=== PATIENT | male | born 1955 | race Caucasian/White ===

== ENCOUNTER → 2019-03-07 | Outpatient (CLI) | payer BC, SELFPAY ==
[2019-03-07 12:26] LABS: Absolute Lymphocyte Count 1.38 X10^3/ul (0.83-4.51); Absolute Neutrophil Count 2.9 X10^3/uL (2.0-7.7); Basophil# 0.05 X10^3/uL; Eosinophil# 0.21 X10^3/uL; Eosinophils% 4.2 % (0-5); Hematocrit 44.1 % (40-54); Hemoglobin 14.9 g/dl (13.0-16.5); Lymphocyte # 1.38 X10^3/ul (4.0); Lymphocyte % 27.6 % (19-41); Mean Corp Hgb Conc 33.8 g/gl (32-36); Mean Corpuscular Hgb 32.3 pg (27.0-32.0); Mean Corpuscular Volume 95.7 fL (80-94); Mean Platelet Vol. 10.2 fl (6.2-12.0); Monocyte# 0.46 X10^3/uL; Monocyte% 9.2 % (0-10); Platelet Count 182 K/mm3 (150-450); RBC Distribution Width CV 13.5 % (11.6-14.6); RBC Distribution Width SD 46.5 fl (35.1-43.9); Red Blood Count 4.61 M/mm3 (4.6-6.2)
[2019-03-07 12:30] LABS: POSITIVE COUNT NO; POSITIVE DIFFERENTIAL NO; POSITIVE MORPHOLOGY NO
[2019-03-07 12:57] LABS: Anion Gap 4 (5-15); BUN 16 mg/dL (7-18); BUN/Creat Ratio 17.7 RATIO (10-20); Calcium,Total 8.5 mg/dL (8.5-10.1); Chloride 110 mmol/L (98-107); Cholesterol 175 mg/dL (200); Creatinine, Serum 0.91 mg/dL (0.70-1.30); EST Glomerular Filtration Rate 90 mL/min (>60); Est Glom Filt Rate - Afr Amer 109 mL/min (>60); Glucose 96 mg/dL (74-106); High Density Lipoprotein 40 mg/dL; PSA,Total - Annual Screen 0.68 ng/mL (0.00-4.00); Potassium 3.9 mmol/L (3.5-5.1); Sodium Level 142 mmol/L (136-145); Triglycerides 91 mg/dL; Very Low Density Lipoprotein 18 mg/dL (5-40)
[2019-03-08 17:17] LABS: Hep C Antibodies <0.1 s/co ratio (0.0-0.9)
== END | disposition home or self-care (01) ==
LOC: MFPLAB 09:53
PROVIDERS: Visit Provider Family Medicine
DX: Z00.00 Encounter for general adult medical examination without abnormal findings (principal); Z12.5 Encounter for screening for malignant neoplasm of prostate; Z11.59 Encounter for screening for other viral diseases
CPT/HCPCS: 36415; 80048; 80061; 84153; 85025; 86803; G0103

== ENCOUNTER → 2019-09-09 11:37 | Outpatient (CLI) | payer BC, SELFPAY ==
--- NOTE | 2019-09-09 11:42 | RAD_ITS ---
STUDY: X-RAY - RIGHT KNEE REASON FOR EXAM: Male, 64 years old. Arthralgia. TECHNIQUE: 4 view(s) of the knee. COMPARISON: None. FINDINGS: Normal visualized distal femur. Normal visualized proximal tibia and fibula. There is mild arthrosis of the proximal tibiofibular articulation. There is no demonstrated fracture. There is mild degenerative arthrosis of the medial femorotibial compartment. Normal lateral femorotibial compartment. Normal patellofemoral articulation. There is no demonstrated joint effusion. The soft tissue structures are unremarkable. RAD/Knee 4 or More Views IMPRESSION: Mild degenerative disease, otherwise normal x-ray examination of the knee. Electronically Signed: Grace Riggins MD at 0:49 EDT , Service support ,
--- NOTE | 2019-09-09 11:42 | RAD_ITS ---
STUDY: X-RAY - LEFT KNEE REASON FOR EXAM: Male, 64 years old. Arthralgia. TECHNIQUE: 4 view(s) of the knee. COMPARISON: None. FINDINGS: Normal visualized distal femur. Normal visualized proximal tibia and fibula. There is arthrosis of the proximal tibiofibular articulation. There is no demonstrated fracture. There is mild degenerative arthrosis of the medial femorotibial compartment. Normal lateral femorotibial compartment. Normal patellofemoral articulation. Possible trace amount of joint fluid. The soft tissue structures are unremarkable. RAD/Knee 4 or More Views IMPRESSION: Minor degenerative disease with possible trace amount of joint fluid. Otherwise unremarkable x-ray of the left knee. Electronically Signed: Grace Riggins MD at 0:49 EDT , Service support ,
--- NOTE | 2019-09-09 11:42 | RAD_ITS ---
STUDY: X-RAY - LEFT SHOULDER REASON FOR EXAM: Male, 64 years old. TECHNIQUE: 4 view(s) of the shoulder. COMPARISON: None. 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 There is degenerative arthrosis of the acromioclavicular joint without inferior osseous spur formation. Normal acromion. Normal humeral head and visualized proximal humerus. The soft tissue structures are unremarkable. There is no demonstrated fracture. Normal visualized pulmonary apex. RAD/Shoulder min 2 Views IMPRESSION: Mild degenerative disease, otherwise normal x-ray examination of the shoulder. Electronically Signed: Grace Riggins MD at 0:49 EDT , Service support ,
--- NOTE | 2019-09-09 11:43 | RAD_ITS ---
STUDY: X-RAY - RIGHT SHOULDER REASON FOR EXAM: Male, 64 years old. Arthralgia. TECHNIQUE: 4 view(s) of the shoulder. COMPARISON: None. 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 There is degenerative arthrosis of the acromioclavicular joint without inferior osseous spur formation. Normal acromion. Normal humeral head and visualized proximal humerus. The soft tissue structures are unremarkable. There is no demonstrated fracture. Normal visualized pulmonary apex. RAD/Shoulder min 2 Views IMPRESSION: Mild degenerative disease, otherwise normal x-ray examination of the shoulder. Electronically Signed: Grace Riggins MD at 0:50 EDT , Service support ,
== END ==
PROVIDERS: Family Provider Family Medicine; PCP Family Medicine; Referring Provider Family Medicine; Visit Provider Family Medicine
DX: M25.50 Pain in unspecified joint (principal)
CPT/HCPCS: 73030; 73564

== ENCOUNTER → 2022-09-23 | Outpatient (CLI) | payer MEDICARE, OTHER, SELFPAY ==
[2022-09-23 15:14] LABS: Absolute Lymphocyte Count 1.48 X10^3/uL (0.83-4.51); Absolute Neutrophil Count 3.2 X10^3/uL (2.0-7.7); Basophil# 0.05 X10^3/uL; Basophil% 0.9 % (0-1); Eosinophil# 0.15 X10^3/uL; Eosinophils% 2.8 % (0-5); Hematocrit 47.6 % (40-54); Hemoglobin 16.1 g/dL (13.0-16.5); Lymphocyte # 1.48 X10^3/ul (0.83-4.51); Lymphocyte % 27.4 % (19-41); Mean Corp Hgb Conc 33.8 g/dL (32-36); Mean Corpuscular Hgb 32.2 pg (27.0-32.0); Mean Corpuscular Volume 95.2 fL (80-94); Mean Platelet Vol. 10.5 fl (6.2-12.0); Monocyte# 0.52 X10^3/uL; Monocyte% 9.6 % (0-10); NRBC Flagged by Analyzer 0 % (0-5); Neutrophil # 3.19 X10^3/uL (2.7-7.7); Neutrophil % 59.1 % (47-70); Platelet Count 196 K/mm3 (150-450); RBC Distribution Width SD 45.8 fl (35.1-43.9); White Blood Count 5.4 K/mm3 (4.4-11.0)
[2022-09-23 15:25] LABS: AST(SGOT) 14 U/L (15-37); Alanine Aminotransfer ALT/SGPT 24 U/L (16-61); Alkaline Phosphatase 74 U/L (45-117); Anion Gap 8 (5-15); BUN 12 mg/dL (7-18); BUN/Creat Ratio 14.9 RATIO (10-20); Calcium,Total 9.3 mg/dL (8.5-10.1); Chloride 103 mmol/L (98-107); Cholesterol 198 mg/dL (200); Creatinine, Serum 0.81 mg/dL (0.70-1.30); EST Glomerular Filtration Rate 102 mL/min (>60); Est Glom Filt Rate - Afr Amer 124 mL/min (>60); Globulin 3.9 g/dL (2.2-4.2); Glucose 91 mg/dL (74-106); High Density Lipoprotein 46 mg/dL; PSA,Total - Annual Screen 0.72 ng/mL (0.00-4.00); Potassium 4.3 mmol/L (3.5-5.1); Protein, Total 7.9 g/dL (6.4-8.2); Sodium Level 138 mmol/L (136-145); Thyroid Stim Hormone (TSH) 1.57 uIU/mL (0.358-3.74); Triglycerides 94 mg/dL; Very Low Density Lipoprotein 19 mg/dL (5-40)
== END | disposition home or self-care (01) ==
LOC: MFPLAB 11:26
PROVIDERS: PCP Family Medicine; Referring Provider Family Medicine; Visit Provider Family Medicine
DX: E78.00 Pure hypercholesterolemia, unspecified (principal); Z12.5 Encounter for screening for malignant neoplasm of prostate
CPT/HCPCS: 36415; 80053; 80061; 84153; 84443; 85025; G0103

== ENCOUNTER → 2022-11-14 | Outpatient (CLI) | payer MEDICARE, OTHER, SELFPAY ==
--- NOTE | 2022-11-14 10:31 | RAD_ITS ---
INDICATION: cough EXAMINATION/TECHNIQUE: X-RAY - XR Chest 2 Views COMPARISON: None. FINDINGS: Support devices: None. Streaky left basilar atelectasis. No focal consolidations, effusions, or sizable pneumothorax. Cardiomediastinal silhouette is within normal limits. No acute findings in the bones or soft tissues. RAD/Chest PA and Lateral IMPRESSION: No radiographic evidence of acute cardiopulmonary disease. Electronically Signed: Dave Haji, at 10:48 EST ,
== END | disposition home or self-care (01) ==
LOC: MTRAD 10:31
PROVIDERS: PCP Family Medicine; Referring Provider Family Medicine; Visit Provider Family Medicine
DX: R05.8 Other specified cough (principal)
CPT/HCPCS: 71046

== ENCOUNTER → 2023-03-27 | Outpatient (CLI) | payer MEDICARE, OTHER, SELFPAY ==
--- NOTE | 2023-03-27 14:42 | RAD_ITS ---
EXAM: XR LEFT HAND COMPLETE, 3 OR MORE VIEWS CLINICAL INDICATION: L hand injury TECHNIQUE: Frontal, lateral and oblique views of the left hand. COMPARISON: No relevant prior studies available. FINDINGS: BONES/JOINTS: Degenerative changes at the base of the thumb and at the lateral midcarpus. No fracture demonstrated. Mild periarticular osteophytes at second through fourth DIP joints on the lateral view. Mild degenerative change of the fifth PIP joint. No sclerotic or destructive changes observed. SOFT TISSUES: Mild dorsal soft tissue swelling. No radiopaque foreign body. RAD/Hand Min 3 Views IMPRESSION: Soft tissue swelling. Degenerative changes. No fracture or dislocation identified. Electronically Signed: Eli Streeter MD at 8:43 EDT ,
== END | disposition home or self-care (01) ==
LOC: MTRAD 14:42
PROVIDERS: PCP Family Medicine; Referring Provider Family Medicine; Visit Provider Family Medicine
DX: S69.92XA Unspecified injury of left wrist, hand and finger(s), initial encounter (principal)
CPT/HCPCS: 73130

== ENCOUNTER 2023-09-23 12:31 | Outpatient (CLI) | payer MEDICARE, OTHER, SELFPAY ==
[2023-09-23 15:33] LABS: ALB/GLOB Ratio 0.9 RATIO (0.9-2.4); AST(SGOT) 16 U/L (15-37); Alanine Aminotransfer ALT/SGPT 30 U/L (16-61); Albumin, Serum 3.6 g/dL (3.2-5.0); Alkaline Phosphatase 78 U/L (45-117); Anion Gap 6 (5-15); BUN 12 mg/dL (7-18); BUN/Creat Ratio 14.5 RATIO (10-20); Chloride 106 mmol/L (98-107); Cholesterol 185 mg/dL (200); Creatinine, Serum 0.83 mg/dL (0.70-1.30); EST Glomerular Filtration Rate 99 mL/min (>60); Est Glom Filt Rate - Afr Amer 120 mL/min (>60); Globulin 4.1 g/dL (2.2-4.2); Glucose 98 mg/dL (74-106); High Density Lipoprotein 42 mg/dL; PSA,Total - Annual Screen 0.86 ng/mL (0.00-4.00); Potassium 4.2 mmol/L (3.5-5.1); Protein, Total 7.7 g/dL (6.4-8.2); Sodium Level 140 mmol/L (136-145); Triglycerides 121 mg/dL; Very Low Density Lipoprotein 24 mg/dL (5-40)
== END 2023-09-23 23:59 | disposition home or self-care (01) ==
LOC: MFPLAB 12:31 → MTLAB 12:32
PROVIDERS: PCP Family Medicine; Referring Provider Family Medicine; Visit Provider Family Medicine
DX: Z00.00 Encounter for general adult medical examination without abnormal findings (principal); Z12.5 Encounter for screening for malignant neoplasm of prostate; E78.00 Pure hypercholesterolemia, unspecified
CPT/HCPCS: 36415; 80053; 80061; 84153; G0103

== ENCOUNTER → 2024-10-12 | Outpatient (CLI) | payer MEDICARE, OTHER, SELFPAY ==
[2024-10-12 11:09] LABS: ALB/GLOB Ratio 0.9 RATIO (0.9-2.4); AST(SGOT) 15 U/L (15-37); Alanine Aminotransfer ALT/SGPT 21 U/L (16-61); Albumin, Serum 3.5 g/dL (3.2-5.0); Alkaline Phosphatase 78 U/L (45-117); Anion Gap 4 (5-15); BUN 10 mg/dL (7-18); Chloride 107 mmol/L (98-107); Creatinine, Serum 0.83 mg/dL (0.70-1.30); EST Glomerular Filtration Rate 98 mL/min (>60); Est Glom Filt Rate - Afr Amer 118 mL/min (>60); Globulin 4.1 g/dL (2.2-4.2); Glucose 105 mg/dL (74-106); Potassium 4.1 mmol/L (3.5-5.1); Protein, Total 7.6 g/dL (6.4-8.2); Sodium Level 140 mmol/L (136-145)
== END | disposition home or self-care (01) ==
PROVIDERS: PCP Family Medicine; Referring Provider Family Medicine; Visit Provider Family Medicine
DX: Z12.5 Encounter for screening for malignant neoplasm of prostate (principal); E21.3 Hyperparathyroidism, unspecified
CPT/HCPCS: 36415; 80053; 82306; 84153; G0103

== ENCOUNTER → 2025-05-01 | Outpatient (CLI) | payer MEDICARE, OTHER, SELFPAY ==
[2025-05-03 07:07] LABS: Calprotectin, Stool 21 ug/g (0-120); Fats, Neutral Normal (.); Fats, Total Increased (.)
[2025-05-03 08:09] LABS: Pancreatic Elastase, Fecal > 800 (>200)
== END | disposition home or self-care (01) ==
LOC: LABSPEC 08:43
PROVIDERS: PCP Family Medicine; Referring Provider Internal Medicine Gastroenterology; Visit Provider Internal Medicine Gastroenterology
DX: K58.9 Irritable bowel syndrome, unspecified (principal); K92.2 Gastrointestinal hemorrhage, unspecified
CPT/HCPCS: 36415; 82274; 82653; 82705; 83630; 83993; 87177; 87209; 87329

== ENCOUNTER → 2025-05-09 | Outpatient (CLI) | payer MEDICARE, OTHER, SELFPAY ==
--- NOTE | 2025-05-09 06:10 | CT_ITS ---
PROCEDURE: ABDOMEN/PELVIS WITH CONTRAST 05/09/2025 REASON FOR EXAM: GI BLEED TECHNIQUE: ABDOMEN/PELVIS WITH oral and IV CONTRAST Coronal and Sagittal reconstruction series were provided. CONTRAST: Isovue 370 VOLUME: 80 mL One or more dose reduction techniques were used (e.g., Automated exposure control, adjustment of the mA and/or kV according to patient size, use of iterative reconstruction technique. RADIATION DOSE SUMMARY: CTDlvol: 18.3 mGy DLP: 1046 mGycm COMPARISON: None FINDINGS: Lung bases: Multivessel coronary calcifications. Triangular nodule in the right lower lobe measuring 3 mm (series 2, image 6). Bibasilar atelectasis. Liver: Subcentimeter hypodensities are too small to characterize. Gallbladder: Unremarkable Spleen: Normal size. Pancreas: Normal size without evidence of mass surrounding inflammation or ductal dilation. Adrenals: Unremarkable Kidneys: No hydronephrosis or stone. Bilateral simple cysts. Additional subcentimeter hypodensities are too small to characterize. Bladder: Unremarkable Reproductive Organs: Mild prostatomegaly Bowel: No obstruction or inflammation. Presence of oral contrast limits evaluation for active gastrointestinal bleeding. Appendix: The appendix is not identified. There is no inflammatory process identified in the right lower quadrant to suggest appendicitis. Lymph nodes: No suspicious lymph node enlargement. Vasculature: Mild diffuse atherosclerotic calcifications are noted. Bones: Degenerative changes of the spine and sacroiliac joints. Soft tissues: There are round an ovoid hypodense lesions in the left rectus femoris muscle, which demonstrate peripheral hyperenhancement and measure slightly above simple fluid density and up to 4.0 cm in size. Postoperative changes from bilateral inguinal hernia repair. CT/Abdomen/Pelvis WITH Contrast IMPRESSION: 1. No definite evidence for an acute intra-abdominal abnormality. Presence of oral contrast precludes evaluation for active gastrointestinal bleeding. 2. Hypodense lesions with peripheral enhancement within the left rectus femori s muscle, partially imaged and measuring up to 4.0 cm in size. Findings could represent intramuscular abscess, hematoma, muscle i njury, or neoplasm. Correlate with history and exam. 3. Pulmonary nodule measuring 3 mm in the right lower lobe. Consider CT chest in 12 months if patient is at high risk for malignancy per Fleischner society guidelines. Reading Location: [facility]
--- OUTSIDE RECORDS SUMMARY | 2025-05-09 06:12 | XMS RPT_ITS | CCD ---
Author Organization [facility]iniSyn[facility] Care Team Providers Care Knocker Off Name Role Phone Dr. Trell Schwartz Primary Care Provider Dr. Trell Schwartz Referring Provider NELSON Beaulieu Attending Provider NELSON Quintero Attending Provider [phone] LANA MONTERO, TRELL Primary Care Physician [phone] ERNESTINA SHAHID, YOAN Hu Attending Shaina SCHWARTZ MD, TRELL Primary Care Unavailable ERNESTINA SHAHID, YOAN Hu Attending Shaina SCHWARTZ MD, TRELL Primary Care Unavailable LANA MONTERO, TRELL Primary Care Unavailable ERNESTINA SHAHID, YOAN Hu Attending YOAN Mcpherson Attending Shaina SCHWARTZ MD, TRELL Primary Care Unavailable Dr. Trell Schwartz MD Primary Care Provider [phone] Referred, Self Attending Provider Unavailable Referred, Self Referring Provider Unavailable Dr. Jarred Corona MD Attending Provider Dr. Trell Schwartz MD Referring Provider Dr. Spenser Garrison DO Attending Provider Dr. Spenser Garrison DO Referring Provider Trell Schwartz Primary Care Unavailable Referred, Self Attending Unavailable Referred, Self Referring Unavailable Trell Schwartz Primary Care Unavailable Spenser Garrison Attending Unavailable Spenser Garrison Referring Unavailable Trell Scwhartz Referring Unavailable Spenser Garrison Attending Unavailable Trell Schwartz Primary Care Unavailable Trell Schwartz Primary Care Unavailable Jarred Corona Attending Unavailable Trell Schwartz Primary Care Unavailable FriendSpenser Attending Unavailable Spenser Garrison Referring Unavailable Trell Schwartz Primary Care Unavailable Trell Schwartz Attending Unavailable Trell Schwartz Referring Unavailable Medications Current Medications Medication Drug Class(es) Dates Sig (Normalized) Sig (Original) cholecalciferol 0.025 mg oral capsule (2 sources) Vitamin D Start: 04-28-2025 take 1 capsule by mouth once daily Cholecalciferol (Vitamin D3) 25 mcg (1,000 unit) capsule Active 25 ug PO daily April 28, 2025 12:00am Chondroitin Sulfates / Glucosamine (1 source) Start: 10-26-2024 Chondroitin-Glucosam ine 400 mg-500 mg oral tablet 0 Refill(s) Start Date: 10/26/24 Status: Ordered Repeat number: 1 glucosamine sulfate 500 mg oral tablet (4 sources) Start: 12-29-2022 take 1 tablet by mouth once daily Glucosamine Sulfate (Glucosamine) 500 mg tablet Active 500 mg PO DAILY December 29, 2022 1:00am administer with a meal Multivitamin (Daily Multi-Vitamin) tablet (4 sources) Start: 12-29-2022 Multivitamin (Daily Multi-Vitamin) tablet Active 1 {tbl} PO DAILY December 29, 2022 1:00am Start: 12-29-2022 take 1 tablet by kassie th once daily Multivitamin (Daily Multi-Vitamin) tablet Active 1 TABLET PO DAILY December 29, 2022 12:00am Start: 12-29-2022 take 1 tablet by kassie th once daily Multivitamin (Daily Multi-Vitamin) tablet Active 1 TABLET PO DAILY December 29, 2022 1:00am Multivitamin preparation (1 source) Start: 10-26-2024 take 1 tablet by mouth once daily Multivitamin Dose = 1 tab(s), Oral, Daily, 0 Refill(s) Start Date: 10/26/24 Status: Ordered Repeat number: 1 Vitamin D3 25 mcg (1000 intl units) oral tablet (1 source) Start: 10-26-2024 take 1 tablet by mouth once daily Vitamin D3 25 mcg (1000 intl units) oral tablet mcg = tab(s), Oral, qDay, 0 Refill(s) Start Date: 10/26/24 Status: Ordered Repeat number: 1 Completed/Discontinued Medications Medication Drug Class(es) Dates Sig (Normalized) Sig (Original) amoxicillin 500 mg oral capsule (4 sources) Penicillin-class Antibacterial Start: 02-16-2023 End: 03-02-2023 take 1 capsule by mouth three times daily Amoxicillin 500 mg capsule Discontinued 500 mg PO THREE TIMES A DAY 42 14 February 16, 2023 12:00am March 01, 2023 12:00am March 02, 2023 12:04am azithromycin 250 mg oral tablet (8 sources) Macrolide Antimicrobial Start: 03-03-2023 End: 04-28-2025 take 2-5 tablets by mouth once daily Azithromycin 250 mg tablet Discontinued 0 PO .COMPLEX March 03, 2023 12:00am April 28, 2025 8:35am take 500 mg today (day 1), then 250 mg for 4 days (days 2-5) PO Start: 12-29-2022 End: 02-16-2023 take 2-5 tablets by mouth once daily Azithromycin 250 mg tablet Discontinued 0 PO .COMPLEX December 29, 2022 1:00am February 16, 2023 12:03pm take 500 mg today (day 1), then 250 mg for 4 days (days 2-5) PO methylPREDNISolone 4 mg oral tablet (4 sources) Corticosteroid Start: 03-03-2023 End: 03-09-2023 take 1 tablet by mouth once Methylprednisolone (Medrol (Endy)) 4 mg tablets,dose pack Discontinued 4 mg PO per package directions 21 March 03, 2023 12:00am March 08, 2023 12:00am March 09, 2023 12:03am Problems Active Problems Problem Classification Problem Date Documented Da te Episodic/Chronic Acute bronchitis (6 sources) Acute bronchitis; Translations: [Acute bronchitis, unspecified] 12-29-2022 Episodic Gastrointestinal hemorrhage (6 sources) Gastrointestinal hemorrhage; Translations: [Gastrointestinal hemorrhage, unspecified] Onset: 5 04-28-2025 Episodic Other gastrointestinal disorders (1 source) Irritable bowel syndrome without diarrhea; Translations: [Irritable bowel syndrome, unspecified] Onset: 5 Chronic Other upper respiratory infections (6 sources) Acute frontal sinusitis; Translations: [Acute frontal sinusitis, unspecified] 02-16-2023 Episodic Past or Other Problems Problem Classification Problem Date Documented Da te Episodic/Chronic Other screening for suspected conditions (not mental disorders or infectious disease) (2 sources) Raised prostate specific antigen; Translations: [Encounter for screening for malignant neoplasm of prostate] Onset: 11-11-2024 10-26-2024 Episodic Results Test Name Value Interpretation Reference Range Facility M7400.3302on 05-06-2025 M7400.3302 __ [facility] ORIGINAL REPORT ON FILE IN LAB CONTAINS ADDITIONAL TEST SITE INFORMATION. Giardia Lamblia EIA NEGATIVE [facility] Comment on above: Performed By: #### L 506.1000, L500.4050 #### [facility] [place], [address] Ova and Parasites 8623on OP OVA AND PARASITES EXAM, ROUTINE These results were obtained using wet preparation(s) and trichrome stained smear. This test does not include testing for Crytosporidium parvum, Cyclospora, or Microsporidia. One negative specimen does not rule out the possibility of a parasitic infection. TESTING PERFORMED AT [facility]. ORIGINAL REPORT ON FILE IN LAB CONTAINS ADDITIONAL TEST SITE INFORMATION. Ova/Parasite Exam NO OVA, CYSTS, OR PARASITES FOUND. [facility] Comment on above: Performed By: #### L 7000.0700, M600.5000, L7000.0300, L7000.0750, M7400.3302, M100.0605, M100.7900 #### [facility] [address] [place], [place], [id number] Calprotectin, Stoolon [address] 21 ug/g Normal 0-120 [facility] Comment on above: Order Comment: Test( s) 154681-Sifn, Neutral; 939085-Pozv, Total was developed and its performance characteristics determined by [employer]. It has not been cleared or approved by the Food and Drug Administration. Result Comment: Conc entration Interpretation Follow-Up < 5 - 50 ug/g Normal None >50 -120 ug/g Borderline Re-evaluate in 4-6 weeks >120 ug/g Abnormal Repeat as clinically indicated Performed at: [address] [id number] Paedodontist: Anders Tillman PhD, Phone: [phone] Performed at: [address] [id number] Paedodontist: Meche Gates MD, Phone: [phone] Performed By: #### L 7000.0700, M600.5000, L7000.0300, L7000.0750, M7400.3302, M100.0605, M100.7900 #### [facility] [address] [place], [place], [id number] Fecal Fat, Qualitativeon FATS, NEUTRAL Normal Normal . [facility] Comment on above: Order Comment: Test( s) 908415-Yogu, Neutral; 009477-Pamj, Total was developed and its performance characteristics determined by [employer]. It has not been cleared or approved by the Food and Drug Administration. Result Comment: Norm al (<60 Droplets/HPF) Performed By: #### L 7000.0700, M600.5000, L7000.0300, L7000.0750, M7400.3302, M100.0605, M100.7900 #### [facility] [address] [place], [place], [id number] FATS, TOTAL Increased Normal . [facility] Comment on above: Order Comment: Test( s) 186578-Oexd, Neutral; 408345-Ygfg, Total was developed and its performance characteristics determined by [employer]. It has not been cleared or approved by the Food and Drug Administration. Result Comment: Norm al (<100 Droplets/HPF) Performed By: #### L 7000.0700, M600.5000, L7000.0300, L7000.0750, M7400.3302, M100.0605, M100.7900 #### [facility] [address] [place], [address] L7000.0750on 05-03-2025 P ELASTASE,FECA > 800 Normal >200 [facility] Comment on above: Result Comment: Resu lt Units: ug Elast./g Severe Pancreatic Insufficiency: <100 Moderate Pancreatic Insufficiency: 100 - 200 Normal: >200 Performed at: [facility] [employer] [id number] Paedodontist: Meche Gates MD, Phone: [phone] Performed By: #### L 7000.0700, M600.5000, L7000.0300, L7000.0750, M7400.3302, M100.0605, M100.7900 #### [facility] [address] [place], [place], [id number] Calprotectin stoolOrdered By : Spenser Garrison on 05-01-2025 Calprotectin stool 21 ug/g 0-120 [facility] Comment on above: Concentration Interp retation Follow-Up< 5 - 50 ug/g Normal None>50 -120 ug/g Borderline Re-evaluate in 4-6 weeks >120 ug/g Abnormal Repeat as clinically indicatedPerformed at: [facility] [employer] [id number] Director: Anders Tillman PhD, Phone: [phone] at: [facility] [employer] [address] [place], [place] [id number] Director: Meche Gates MD, Phone: [phone] Fecal fat detectionOrdered B y: Spenser Garrison on 05-01-2025 Fat Ql (Stl) Increased . [facility] Comment on above: Normal (<100 Droplet s/HPF) No Panel InformationOrdered By: Spenser Garrison on 05-01-2025 Stool Neutral Fats Normal . [facility] Comment on above: Normal (<60 Droplets /HPF) Stool Lactoferrin/WBCon 04-16 WBCST Normal Reference Ran ge = Negative Fecal WBC Lactoferrin Negative: No Fecal WBC Lactoferrin present Normal [facility] Comment on above: Performed By: #### L 7000.0700, M600.5000, L7000.0300, L7000.0750, M7400.3302, M100.0605, M100.7900 #### [facility] [address] [place], [place], [id number] Stool Occult Blood iFOBon STOB Negative Normal [facility] Comment on above: Performed By: #### L 7000.0700, M600.5000, L7000.0300, L7000.0750, M7400.3302, M100.0605, M100.7900 #### [facility] [address] [place], [place], [id number] Stool gastrointestinal hemog lobin detection by immunologic methodOrdered By: Spenser Garrison on 05-01-2025 Lower GI hemoglobin IA Ql (Stl) [facility] Stool lactoferrin detection by immunoassayOrdered By: Spenser Garrison on 05-01-2025 Lactoferrin IA Ql (Stl) [facility] Stool pancreatic elastase me asurement (mass/mass)Ordered By: Spenser Garrison on 05-01-2025 Elastase.pancreatic (Stl) [Mass/Mass] > 800 >200 [facility] Comment on above: Result Units: ug Sisi st./g Severe Pancreatic Insufficiency: <100 Moderate Pancreatic Insufficiency: 100 - 200 Normal: >200Performed at: [facility] [address] [place], [place] [id number] Director: Meche Gates MD, Phone: [phone] Gastroenterology Visit Repor umm 04-28-2025 Gastroenterology Visit Report [facility] [address] [place] [address] OFFICE VISIT Date of Service: 04/28/25 MR#: [id number] Acct: [id number] Name: DERICK GALINDO Rep #: [id number] : 1955 Provider: Spenser Garrison DO Age/Sex: 69/M Location: [facility] Status: Signed Intake Vital Signs 02/16/23 12:00 Height 6 ft 0.25 in Intake Visit Reasons: SOFT DARK STOOL BLEEDING Allergies No Known Allergies Allergy (Unverified 03/03/23 07:54) Medications ???Medication ???Instructions ???Recorded ???Confirmed ???Type glucosamine sulfate 500 mg tablet 500 mg PO DAILY 12/29/22 04/28/25 History (Glucosamine) multivitamin (Daily Multi-Vitamin 1 tab PO DAILY 12/29/22 04/28/25 History tablet) cholecalciferol (vitamin D3) 25 25 mcg PO QDAY 04/28/25 04/28/25 H istory mcg (1,000 unit) capsule Have you fallen in the past year?: No PFSH Medical History Acute frontal sinusitis, unspecified HPI HPI Details: DERICK GALINDO, is a 69 M who presents to the office today for initial consult. *BGI established 6. pt reports he is establishing with GI due to a change in bowel habits. Pt reports that the change started on April 16, 2025. Pt reported runny stool and had noticed some blood in his stool as well. States things slowly seem to be returning to normal, but notes that he is having 1 small bm per day, whereas before he was having 2-3 larger bm per day. Reports last colonoscopy was in November of [address] García. Pt denies other GI symptoms of concern at this time. ROS Const Constitutional: No fatigue, fever(s) or weight change ENT ENT: No difficulty swallowing Gastro GI: Positive for change in bowel habits; No abdominal pain, belching, bloating, change in stool character, coffee ground emesis, constipation, cramping, diarrhea, heartburn, difficulty swallowing, feeling full early, excessive flatus, incontinent of stools, Vomiting blood/hematemesis, Blood in stool, loose stools, Black,tarry stools, nausea/dyspepsia, pain with swallowing, vomiting or other Musc Musculoskeletal: No joint pain Skin Skin: No yellowing of the eye or itchy eyes Psych Psychiatric: No anxiety and No depression Endo Endocrine: No fatigue or weight change Aller/Imm Allergy/Immunologic: No itchy eyes Deven/Lymp Hematologic/Lymphatic: No easy bleeding or easy bruising Exam Const General: cooperative, healthy appearing and no acute distress Nutritional Appearance: average body habitus Orientation: alert, awake and oriented x3 HENMT Head: normal to inspection Ears: hearing grossly normal bilaterally, external ears normal, TM's normal bilaterally and EAC's normal Nose: external nose normal, nares normal, septum normal and no nasal discharge Face and sinus: normal facial exam, face symmetric and sinus tenderness frontal Mouth: oral mucosae normal, lip normal, tongue normal and oropharynx normal Throat: posterior oropharynx normal, tonsils normal, uvula midline and postnasal drainage (Scant purulent) Eyes General: appearance normal, both eyes and all related structures Neck Neck: normal visual inspection, full ROM, no lymphadenopathy, no meningeal signs and supple Neck mass: No Thyroid: thyroid normal Lymphatic: no lymphadenopathy noted Chest Chest palpation inspection: normal inspection of the chest Resp Effort Inspection: normal respiratory effort, able to speak in complete sentences and cough Quality of cough: wet (X1 nonproductive episode in office today) Auscultation: Bilateral: Clear to Auscultation Cardio Palpation: normal PMI Rate: regular rate Rhythm: regular rhythm Heart Sounds: S1 normal, S2 normal, no gallops, no murmurs and no rubs Pulses: radial pulses present GI Inspection: normal to inspection Skin General: no rashes or lesions noted Neuro General: patient alert, patient awake and patient oriented x3 Cognition: normal cognition Speech: speech normal Extrem General: normal to inspection Psych Appearance: grossly normal Mental Status: mental status grossly normal Mood: congruent mood Affect: normal affect Speech and Movement: speech and movement normal Attitude: cooperative Thought Process: normal Thought Content: normal Judgment: judgment good Assessment and Plan Assessment and Plan (1) GI bleed: Status: Acute Plan: 69-year-old gentleman with no significant past medical history, not on nonsteroidals who presents with crampy abdominal pain followed by episodes of loose stool that changed into bloody stools. Patient had a colonoscopy approximately 2 years ago and was normal. He does have history of diverticular disease. He has not started any new medicines. Denies any NSAID usage. He has not had any abdominal surgeries. He was not (more content not included)... Normal [facility] PSAon 02-14-2025 Prostate Specific Antigen 1.32 ng/mL Normal 0.00-4.00 [facility] Comment on above: Performed By: #### P SA #### [address] [place], [place] [address] LABORATORYOrdered By: SYSTEM SYSTEM on 11-15-2024 Prostate specific Ag [Mass/Vol] 2.63 ng/mL Normal 0.00 - 4.00 ng/mL AO ADM SS PSAon 11-15-2024 Prostate Specific Antigen 2.63 ng/mL Normal 0.00-4.00 [facility] Comment on above: Performed By: #### P SA #### [address] [address] Comprehensive Metabolic Prof ilon 10-12-2024 Albumin [Mass/Vol] 3.5 g/dL Normal 3.2-5.0 [facility] Comment on above: Order Comment: Order Date: 09/13/24 Order Info: 0786-1 - CMP Order Info: 2857- - PSA Performed By: #### L 506.1000, L500.4050 #### [facility] [address] [place], [address] Albumin/Globulin [Mass ratio] 0.9 {ratio} Normal 0.9-2.4 [facility] Comment on above: Order Comment: Order Date: 09/13/24 Order Info: 0786-1 - CMP Order Info: 2857 - PSA Performed By: #### L 506.1000, L500.4050 #### [facility] [address] [place], [address] ALK P 78 U/L Normal 45-117 [facility] Comment on above: Order Comment: Order Date: 09/13/24 Order Info: 07-1 - CMP Order Info: 2856-11 - PSA Performed By: #### L 506.1000, L500.4050 #### [facility] [address] [place], [address] ALT [Catalytic activity/Vol] 21 U/L Normal 16-61 [facility] Comment on above: Order Comment: Order Date: 09/13/24 Order Info: 785- - CMP Order Info: 2856-11 - PSA Performed By: #### L 506.1000, L500.4050 #### [facility] [address] [place], [address] AST [Catalytic activity/Vol] 15 U/L Normal 15-37 [facility] Comment on above: Order Comment: Order Date: 09/13/24 Order Info: 07 - CMP Order Info: [id number] - PSA Performed By: #### L 506.1000, L500.4050 #### [facility] [address] [place], [address] Bilirubin [Mass/Vol] 0.50 mg/dL Normal 0.20-1.00 [facility] Comment on above: Order Comment: Order Date: 09/13/24 Order Info: 07- - CMP Order Info: 285- - PSA Result Comment: For patients on eltrombopag therapy, use of Dimension Head Waters TBIL is not recommended. Performed By: #### L 506.1000, L500.4050 #### [facility] [address] [place], [address] BUN/CRE 12.0 RATIO Normal 10-20 [facility] Comment on above: Order Comment: Order Date: 09/13/24 Order Info: 07-1 - CMP Order Info: [id number] - PSA Performed By: #### L 506.1000, L500.4050 #### [facility] [address] [place], [address] CA,Total 9.0 mg/dL Normal 8.5-10.1 [facility] Comment on above: Order Comment: Order Date: 09/13/24 Order Info: 07 - CMP Order Info: 2856-11 - PSA Performed By: #### L 506.1000, L500.4050 #### [facility] [address] [place], [address] Chloride [Moles/Vol] 107 mmol/L Normal 98-107 [facility] Comment on above: Order Comment: Order Date: 09/13/24 Order Info: 07 - CMP Order Info: 2856-11 - PSA Performed By: #### L 506.1000, L500.4050 #### [facility] [address] [place], [address] CO2 [Moles/Vol] 29.0 mmol/L Normal 21.0-32.0 [facility] Comment on above: Order Comment: Order Date: 09/13/24 Order Info: 0786- - CMP Order Info: 2856-11 - PSA Performed By: #### L 506.1000, L500.4050 #### [facility] [address] [place], [address] Creatinine [Mass/Vol] 0.83 mg/dL Normal 0.70-1.30 [facility] Comment on above: Order Comment: Order Date: 09/13/24 Order Info: 0786- - CMP Order Info: 2856-11 - PSA Result Comment: The validity of the calculated GFR GFRAA in patients over 70 years has not been determined. Clinical correlation is essential. Performed By: #### L 506.1000, L500.4050 #### [facility] [address] [place], [address] EST GFR - AA 118 mL/min Normal >60 [facility] Comment on above: Order Comment: Order Date: 09/13/24 Order Info: 07 - CMP Order Info: 2856-11 - PSA Result Comment: Afri can Albanian GFR Calc Performed By: #### L 506.1000, L500.4050 #### [facility] [address] [place], [address] GAP 4 Low 5-15 [facility] Comment on above: Order Comment: Order Date: 09/13/24 Order Info: 785-11 - CMP Order Info: 2856-11 - PSA Performed By: #### L 506.1000, L500.4050 #### [facility] [address] [place], [address] GFR/1.73 sq M.predicted among non-blacks MDRD (S/P/Bld) [Vol rate/Area] 98 mL/min/{1.73_m2} Normal >60 [facility] Comment on above: Order Comment: Order Date: 09/13/24 Order Info: 07 - CMP Order Info: 2856-11 - PSA Result Comment: Non- GFR Calc Performed By: #### L 506.1000, L500.4050 #### [facility] [address] [place], [address] Globulin (S) [Mass/Vol] 4.1 g/dL Normal 2.2-4.2 [facility] Comment on above: Order Comment: Order Date: 09/13/24 Order Info: 0786 - CMP Order Info: [id number] - PSA Performed By: #### L 506.1000, L500.4050 #### [facility] [address] [place], [address] Glucose [Mass/Vol] 105 mg/dL Normal 74-106 [facility] Comment on above: Order Comment: Order Date: 09/13/24 Order Info: 0786 - CMP Order Info: [id number] - PSA Result Comment: Fast ing Glucose result from 100 to 125 mg/dL suggests IMPAIRED HOMEOSTASIS per A.D.A. criteria. Performed By: #### L 506.1000, L500.4050 #### [facility] [address] [place], [address] Potassium [Moles/Vol] 4.1 mmol/L Normal 3.5-5.1 [facility] Comment on above: Order Comment: Order Date: 09/13/24 Order Info: 0786-1 - CMP Order Info: 2856-1 - PSA Performed By: #### L 506.1000, L500.4050 #### [facility] [address] [place], [address] Sodium [Moles/Vol] 140 mmol/L Normal 136-145 [facility] Comment on above: Order Comment: Order Date: 09/13/24 Order Info: 07- - CMP Order Info: 2856-11 - PSA Performed By: #### L 506.1000, L500.4050 #### [facility] [address] [place], [address] T PROT 7.6 g/dL Normal 6.4-8.2 [facility] Comment on above: Order Comment: Order Date: 09/13/24 Order Info: 0786-1 - CMP Order Info: 2856-11 - PSA Performed By: #### L 506.1000, L500.4050 #### [facility] [address] [place], [address] Urea nitrogen [Mass/Vol] 10 mg/dL Normal 7-18 [facility] Comment on above: Order Comment: Order Date: 09/13/24 Order Info: 0786-1 - CMP Order Info: 285-1 - PSA Performed By: #### L 506.1000, L500.4050 #### [facility] [address] [place], [address] PSA,Total - Annual Screenon 10-12-2024 PSA,TOT SCREEN 11.10 ng/mL High 0.00-4.00 [facility] Comment on above: Order Comment: Order Date: 09/13/24 Order Info: 0786-1 - CMP Order Info: 2857-1 - PSA Result Comment: This test was performed using the TPSA assay method for the [employer] chemistry system. Values obtained with different assay methods cannot be used interchangably. When changing PSA assays in the course of monitoring a patient, additional sequential testing should be carried out to confirm baseline values. Performed By: #### L 501.9910 #### [facility] [address] [place], [address] Vitamin D,25 Hydroxyon 10-12 Vitamin D 25-OH 30.0 ng/mL Normal [facility] Comment on above: Order Comment: Order Date: 09/13/24 Order Info: [id number] - VITD25 Result Comment: Reanna min D 25(OH) Status Range Deficiency <20 ng/mL (50nmol/L) Insufficiency 20 - 30 ng/mL (50 - 75 nmol/L) Sufficiency 30 - 100 ng/mL (75 - 250 nmol/L) Toxicity >100 ng/mL (>250 nmol/L) Performed By: #### L 506.1000, L500.4050 #### [facility] [address] [place], [address] Basophil percentageOrdered B y: Trell Schwartz on 09-23-2023 Bilirubin [Mass/Vol] 0.80 mg/dL 0.20-1.00 [facility] Comment on above: For patients on eltr ombopag therapy, use of Dimension [place] TBIL is not recommended. Chloride [Moles/Vol] 106 mmol/L 98-107 [facility] Cholesterol [Mass/Vol] 185 mg/dL <200 [facility] Comment on above: <200 mg/dL Desirable 200-240 mg/dL Borderline >240 mg/dL High Risk Glucose [Mass/Vol] 98 mg/dL 74-106 [facility] Potassium [Moles/Vol] 4.2 mmol/L 3.5-5.1 [facility] Protein [Mass/Vol] 7.7 g/dL 6.4-8.2 [facility] Sodium [Moles/Vol] 140 mmol/L 136-145 [facility] Triglyceride [Mass/Vol] 121 mg/dL <199 [facility] Comment on above: The drugs N-Acetylcy steine and Metamizole may falsely depress this assay.Serum Triglycerides Reference Interval Normal <150 mg/dL Borderline high 150 - 199 mg/dL High 200 - 499 mg/dL Very High > or = 500 mg/dL Laboratory - Chemistry and C hemistry - challengeOrdered By: Trell Schwartz on 09-23-2023 ALP [Catalytic activity/Vol] 78 U/L 45-117 [facility] ALT [Catalytic activity/Vol] 30 U/L 16-61 [facility] CO2 [Moles/Vol] 28.0 mmol/L 21.0-32.0 [facility] Globulin (S) [Mass/Vol] 4.1 g/dL 2.2-4.2 [facility] Urea nitrogen/Creatinine [Mass ratio] 14.5 mg/mg 10-20 [facility] No Panel InformationOrdered By: Trell Schwartz on 09-23-2023 Estimated GFR (MDRD) Amer 120 mL/min >60 [facility] Comment on above: GFR Calc Estimated GFR (MDRD) Non-Af Amer 99 mL/min >60 [facility] Comment on above: Non- GFR Calc Prostate Specific Antigen Screen 0.86 ng/mL 0.00-4.00 [facility] Comment on above: This test was perfor med using the TPSA assay method for the[facility] system. Values obtained with differentassay methods cannot be used interchangably.When changing PSA assays in the course of monitoring apatient, additional sequential testing should be carriedout to confirm baseline values. Serum or plasma albumin rochelle urement (mass/volume)Ordered By: Trell Schwartz on 09-23-2023 Albumin [Mass/Vol] 3.6 g/dL 3.2-5.0 [facility] Serum or plasma albumin/glob ulin mass ratioOrdered By: Trell Schwartz on 09-23-2023 Albumin/Globulin [Mass ratio] 0.9 {ratio} 0.9-2.4 [facility] Serum or plasma calcium rochelle urement (mass/volume)Ordered By: Trell Schwartz on 09-23-2023 Calcium [Mass/Vol] 9.0 mg/dL 8.5-10.1 [facility] Serum or plasma cholesterol in HDL measurement (mass/volume)Ordered By: Trell Schwartz on 09-23-2023 Cholesterol in HDL [Mass/Vol] 42 mg/dL >40 [facility] Comment on above: The drugs N-Acetylcy steine and Metamizole may falsely depress this assay. Reference Range HDL <40 mg/dL Low HDL Cholesterol HDL >or= 60 mg/dL High HDL Cholesterol Serum or plasma cholesterol in VLDL measurement (mass/volume)Ordered By: Trell Schwartz on 09-23-2023 Cholesterol in VLDL [Mass/Vol] 24 mg/dL 5-40 [facility] Serum or plasma creatinine m easurement (mass/volume)Ordered By: Trell Schwartz on 09-23-2023 Creatinine [Mass/Vol] 0.83 mg/dL 0.70-1.30 [facility] Comment on above: The validity of the calculated GFR & GFRAA in patients over 70 years has not been determined. Clinical correlation is essential. Serum or plasma low density lipoprotein (LDL) cholesterol measurement (mass/volume)Ordered By: Trell Schwartz on 09-23-2023 Cholesterol in LDL [Mass/Vol] 119 mg/dL 0-130 [facility] Serum or plasma urea nitroge n measurement (mass/volume)Ordered By: Trell Schwartz on 09-23-2023 Urea nitrogen [Mass/Vol] 12 mg/dL 7-18 [facility] Thin prep Papanicolaou smear with manual screeningOrdered By: Trell Schwartz on 09-23-2023 Thin prep Papanicolaou smear with manual screening 16 U/L 15-37 [facility] Thin prep Papanicolaou smear with manual screening 6 5-15 [facility] Absolute lymphocyte counton 09-23-2022 Lymphocytes Auto (Unsp spec) [#/Vol] 1.48 10*3/uL 0.83-4.51 [facility] Work Phone: Basophil percentageon 2021 Basophils/100 WBC (Bld) 0.9 % 0-1 [facility] Work Phone: Bilirubin [Mass/Vol] 0.90 mg/dL 0.20-1.00 [facility] Work Phone: Comment on above: For patients on eltr ombopag therapy, use of Dimension [place] TBIL is not recommended. Chloride [Moles/Vol] 103 mmol/L 98-107 [facility] Work Phone: Cholesterol [Mass/Vol] 198 mg/dL <200 [facility] Work Phone: Comment on above: <200 mg/dL Desirable 200-240 mg/dL Borderline >240 mg/dL High Risk Eosinophils/100 WBC (Bld) 2.8 % 0-5 [facility] Work Phone: [phone] Glucose [Mass/Vol] 91 mg/dL 74-106 [facility] Work Phone: [phone] Neutrophils (Bld) [#/Vol] 3.2 10*3/uL 2.0-7.7 [facility] Work Phone: [phone] Neutrophils/100 WBC (Bld) 59.1 % 47-70 [facility] Work Phone: [phone] Potassium [Moles/Vol] 4.3 mmol/L 3.5-5.1 [facility] Work Phone: [phone] Protein [Mass/Vol] 7.9 g/dL 6.4-8.2 [facility] Work Phone: [phone] Sodium [Moles/Vol] 138 mmol/L 136-145 [facility] Work Phone: [phone] Triglyceride [Mass/Vol] 94 mg/dL <199 [facility] Work Phone: [phone] Comment on above: The drugs N-Acetylcy steine and Metamizole may falsely depress this assay.Serum Triglycerides Reference Interval Normal <150 mg/dL Borderline high 150 - 199 mg/dL High 200 - 499 mg/dL Very High > or = 500 mg/dL WBC (Bld) [#/Vol] 5.4 10*3/uL 4.4-11.0 [facility] Work Phone: Blood erythrocytes count (nu mber/volume)on 09-23-2022 RBC (Bld) [#/Vol] 5.00 10*6/uL 4.6-6.2 [facility] Work Phone: Blood hemoglobin measurement (mass/volume)on 09-23-2022 Hemoglobin (Bld) [Mass/Vol] 16.1 g/dL 13.0-16.5 [facility] Work Phone: Blood lymphocytes/100 leukoc yteson 09-23-2022 Lymphocytes/100 WBC (Bld) 27.4 % 19-41 [facility] Work Phone: Blood monocytes/100 leukocyt eson 09-23-2022 Monocytes/100 WBC (Bld) 9.6 % 0-10 [facility] Work Phone: Blood platelet mean volumeon 09-23-2022 Platelet mean volume (Bld) [Entitic vol] 10.5 fL 6.2-12.0 [facility] Work Phone: Determination of erythrocyte mean corpuscular volume (MCV)on 09-23-2022 MCV (RBC) [Entitic vol] 95.2 fL 80-94 [facility] Work Phone: Hematocrit Auto (Bld) [Volum e fraction]on 09-23-2022 Hematocrit (Bld) [Volume fraction] 47.6 % 40-54 [facility] Work Phone: Laboratory - Chemistry and C hemistry - challengeon 09-23-2022 ALP [Catalytic activity/Vol] 74 U/L 45-117 [facility] Work Phone: ALT [Catalytic activity/Vol] 24 U/L 16-61 [facility] Work Phone: CO2 [Moles/Vol] 27.0 mmol/L 21.0-32.0 [facility] Work Phone: Globulin (S) [Mass/Vol] 3.9 g/dL 2.2-4.2 [facility] Work Phone: Urea nitrogen/Creatinine [Mass ratio] 14.9 mg/mg 10-20 [facility] Work Phone: Laboratory - Hematology and Cell countson 09-23-2022 Erythrocyte distribution width (RBC) [Entitic vol] 45.8 fL 35.1-43.9 [facility] Work Phone: Erythrocyte distribution width (RBC) [Ratio] 13.0 % 11.6-14.6 [facility] Work Phone: Immature granulocytes/100 WBC (Bld) 0.200 % 0.0-0.9 [facility] Work Phone: Comment on above: IG% - Immature Granu locytes (promyelocytes, myelocytes and metamyelocytes) > 1% indicates that a LEFT SHIFT is Present. MCH (RBC) [Entitic mass] 32.2 pg 27.0-32.0 [facility] Work Phone: Nucleated RBC/100 WBC (Bld) [Ratio] 0 % 0-5 [facility] Work Phone: MCHC Auto (RBC) [Mass/Vol]on 09-23-2022 MCHC (RBC) [Mass/Vol] 33.8 g/dL 32-36 [facility] Work Phone: No Panel Informationon 09-23 Estimated GFR (MDRD) Amer 124 mL/min >60 [facility] Work Phone: Comment on above: GFR Calc Estimated GFR (MDRD) Non-Af Amer 102 mL/min >60 [facility] Work Phone: Comment on above: Non- GFR Calc Prostate Specific Antigen Screen 0.72 ng/mL 0.00-4.00 [facility] Work Phone: Comment on above: This test was perfor med using the TPSA assay method for the[employer] chemistry system. Values obtained with differentassay methods cannot be used interchangably.When changing PSA assays in the course of monitoring apatient, additional sequential testing should be carriedout to confirm baseline values. Thyroid Stimulating Hormone (TSH) 1.57 uIU/mL 0.358-3.74 [facility] Work Phone: Platelets bldon 09-23-2022 Platelets (Bld) [#/Vol] 196 10*3/uL 150-450 [facility] Work Phone: Serum or plasma albumin rochelle urement (mass/volume)on 09-23-2022 Albumin [Mass/Vol] 4.0 g/dL 3.2-5.0 [facility] Work Phone: Serum or plasma albumin/glob ulin mass ratioon 09-23-2022 Albumin/Globulin [Mass ratio] 1.0 {ratio} 0.9-2.4 [facility] Work Phone: Serum or plasma calcium rochelle urement (mass/volume)on 09-23-2022 Calcium [Mass/Vol] 9.3 mg/dL 8.5-10.1 [facility] Work Phone: Serum or plasma cholesterol in HDL measurement (mass/volume)on 09-23-2022 Cholesterol in HDL [Mass/Vol] 46 mg/dL >40 [facility] Work Phone: Comment on above: The drugs N-Acetylcy steine and Metamizole may falsely depress this assay. Reference Range HDL <40 mg/dL Low HDL Cholesterol HDL >or= 60 mg/dL High HDL Cholesterol Serum or plasma cholesterol in VLDL measurement (mass/volume)on 09-23-2022 Cholesterol in VLDL [Mass/Vol] 19 mg/dL 5-40 [facility] Work Phone: Serum or plasma creatinine m easurement (mass/volume)on 09-23-2022 Creatinine [Mass/Vol] 0.81 mg/dL 0.70-1.30 [facility] Work Phone: Comment on above: The validity of the calculated GFR & GFRAA in patients over 70 years has not been determined. Clinical correlation is essential. Serum or plasma low density lipoprotein (LDL) cholesterol measurement (mass/volume)on 09-23-2022 Cholesterol in LDL [Mass/Vol] 133 mg/dL 0-130 [facility] Work Phone: Serum or plasma urea nitroge n measurement (mass/volume)on 09-23-2022 Urea nitrogen [Mass/Vol] 12 mg/dL 7-18 [facility] Work Phone: Thin prep Papanicolaou smear with manual screeningon 09-23-2022 Thin prep Papanicolaou smear with manual screening 14 U/L 15-37 [facility] Work Phone: Thin prep Papanicolaou smear with manual screening 8 5-15 [facility] Work Phone: Vital Signs Date Time Vital Sign Value Performing Clinician Faci lity 03-03-2023 07:55-0400 Body temperature 98.6 [degF] Dr. Trell Schwartz Work Phone: [facility] 03-03-2023 07:55-0400 Diastolic blood pressure 90 mm[Hg] Dr. Trell Schwartz Work Phone: [facility] 03-03-2023 07:55-0400 Heart rate 80 /min Dr. Trell Schwartz Work Phone: [facility] 03-03-2023 07:55-0400 Respiratory rate 16 /min Dr. Trell Schwartz Work Phone: [facility] 03-03-2023 07:55-0400 SaO2% (BldA) [Mass fraction] 98 % Dr. Trell Schwartz Work Phone: [facility] 03-03-2023 07:55-0400 Systolic blood pressure 136 mm[Hg] Dr. Trell Schwartz Work Phone: [facility] 02-16-2023 12:00-0400 Body height 183.[address] Trell Schwartz Work Phone: [facility] 02-16-2023 12:00-0400 Body mass index (BMI) [Ratio] 27.8 kg/m2 Dr. Trell Schwartz Work Phone: [facility] 02-16-2023 12:00-0400 Body temperature 98.2 [degF] Dr. Trell Schwartz Work Phone: [facility] 02-16-2023 12:00-0400 Body weight 93.[address] Trell Schwartz Work Phone: [facility] 02-16-2023 12:00-0400 Diastolic blood pressure 82 mm[Hg] Dr. Trell Schwartz Work Phone: [facility] 02-16-2023 12:00-0400 Heart rate 84 /min Dr. Trell Schwartz Work Phone: [facility] 02-16-2023 12:00-0400 Respiratory rate 12 /min Dr. Trell Schwartz Work Phone: [facility] 02-16-2023 12:00-0400 SaO2% (BldA) [Mass fraction] 97 % Dr. Trell Schwartz Work Phone: [facility] 02-16-2023 12:00-0400 Systolic blood pressure 136 mm[Hg] Dr. Trell Schwartz Work Phone: [facility] 12-29-2022 11:00-0500 Body mass index (BMI) [Ratio] 27.9 kg/m2 Dr. Trell Schwartz Work Phone: [facility] 12-29-2022 11:00-0500 Body temperature 98.4 [degF] Dr. Trell Schwartz Work Phone: [facility] 12-29-2022 11:00-0500 Body weight [address] Trell Schwartz Work Phone: [facility] 12-29-2022 11:00-0500 Diastolic blood pressure 72 mm[Hg] Dr. Trell Schwartz Work Phone: [facility] 12-29-2022 11:00-0500 Heart rate 77 /min Dr. Trell Schwartz Work Phone: [facility] 12-29-2022 11:00-0500 Respiratory rate 18 /min Dr. Trell Schwartz Work Phone: [facility] 12-29-2022 11:00-0500 SaO2% (BldA) [Mass fraction] 99 % Dr. Trell Schwartz Work Phone: [facility] 12-29-2022 11:00-0500 Systolic blood pressure 138 mm[Hg] Dr. Trell Schwartz Work Phone: [facility] Encounters Encounter Date Encounter Type Care Provider Facility Start: 05-09-2025 ambulatory Trell Schwartz Facilit y:[facility] Start: 05-01-2025 End: 05-01-[address] Trell Schwartz MD Work Phone: [facility] Work Phone: Start: 05-01-2025 End: 05-01-2025 Patient encounter procedure Spenser Garrison DO -Laboratory Specimen Work Phone: Start: 05-01-2025 End: 05-01-2025 ambulatory Trell Schwartz Facility:[facility] Start: 04-28-2025 End: 04-28-[address] Trell Schwartz MD Work Phone: [facility] Work Phone: Start: 04-28-2025 End: 04-28-2025 Patient encounter procedure Spenser Garrison DO -[facility] Work Phone: Start: 02-14-2025 End: 02-14-2025 ambulatory TRELL SCHWARTZ MD Facility:[facility] Start: 01-13-2025 Non-patient / Non-visit Dr. Jarred Corona MD -[facility] Start: 01-13-2025 Registered Referred Self Referred -[facility] Work Phone: Start: 01-13-2025 ambulatory Trell Schwartz Facilit y:[facility] Start: 11-23-2024 End: 11-23-2024 ambulatory YOAN DO [employer] Facility:A Start: 11-15-2024 End: 11-15-2024 ambulatory YOAN DO [employer] Facility:[facility] Start: 11-15-2024 End: 11-15-2024 Patient encounter procedure YOAN Hu ERNESTINA [employer] [facility] Start: 10-26-2024 End: 10-26-2024 ambulatory YOAN DO [employer] Facility:[facility] Start: 10-12-2024 End: 10-12-2024 ambulatory Trell Schwartz Facility:[facility] Start: 09-23-2023 End: 09-23-2023 ambulatory [facility] Work Phone: Start: 09-23-2023 End: 09-23-2023 Patient encounter procedure [facility] Work Phone: Start: 03-27-2023 End: 03-27-[address] Trell Schwartz Work Phone: [facility] Work Phone: Start: 03-27-2023 End: 03-27-[address] Trell Schwartz Work Phone: [facility] Start: 03-03-2023 End: 03-03-[address] Trell Schwartz Work Phone: [facility] Start: 02-16-2023 End: 02-16-[address] Trell Schwartz Work Phone: [facility] Start: 12-29-2022 End: 12-29-[address] Trell Schwartz Work Phone: [facility] Start: 11-14-2022 End: 11-14-2022 ambulatory [facility] Work Phone: Start: 11-14-2022 End: 11-14-2022 Patient encounter procedure [facility] [place] Start: 09-23-2022 End: 09-23-2022 Patient encounter procedure [facility] [place] [facility] Procedures Date Procedure Procedure Detail Performing Clinician Start: 05-01-[address] Trell Schwartz MD Work Phone: Start: 05-01-2025 Measurement of occul t blood in stool specimen using immunoassay Dr. Trell Schwartz MD Work Phone: Start: 03-27-2023 Plain x-ray of hand Dr. Trell Schwartz Work Phone: Start: 11-14-2022 Plain chest X-ray Start: 10-16-2008 Cataract of right eye B ENKATARZYNA ERNESTINA [employer] Start: 09-16-2007 Cataract of left eye BE NJLANA ERNESTINA [employer] Start: 11-16-2003 Herniated structure (morphologic abnormality) YOAN DO [employer] Vasectomy YOAN DO [employer] Plan of Treatment Date Care Activity Detail Author Start: 05-01-2025 Giardia Antigen (CRYSTAL) Giardia Antige n (CRYSTAL) [facility] Start: 05-01-2025 Ova and Parasites Ova and Parasites [facility] Start: 05-01-[address] [facility] [address] Abdomen and Pelvi s W contrast IV [facility] Elastase.pancreatic [Presence] in Stool [facility] Fat [Presence] in Stool [facility] Giardia lamblia anti gen assay [facility] Lactoferrin [Presenc e] in Stool by Immunoassay [facility] Measurement of occul t blood in stool specimen using immunoassay [facility] Ova OR parasites identification [facility] Protein measurement [facility] Payers Date Payer Category Payer Medicare [id number] 2024 Private Health Insurance [facility] [id number] 2024 Medicare [id number] 2024 Private Health Insurance CLI [id number] 2024 Self-pay [id number] 2012 Unknown CATHERINE [id number] 1957 Unknown [id number] 1955 Unknown [id number] 1957 Unknown [id number] 1955 Unknown [id number] Self-pay SEL[employer] PAY INSURANCE [id number] Unknown [id number] Unknown [id number] Unknown [id number] Unknown [id number] Unknown [id number] Unknown [id number] Social History Date Type Detail Facility [facility] Work Phone: Start: 1955 Sex Assigned At Male [facility] Start: 10-26-2024 Tobacco smoking status Never s moked tobacco (finding) [facility] Sexual Orientation [facility] Sex Male (finding) [facility] smoked [facility] Work Phone: Evaluation note 04-28-2025 Note Date & Type Note Facility 04-28-2025 Evaluation note Diagnosis Onset Date Resolution GI bleed acute April 28 8:19am [facility] Work Phone: Evaluation + Plan note Note Date & Type Note Facility Evaluation + Plan note Future Appointments Appointment Date:11/23/2024 03:20:00 PM Scheduled Provider:YOAN DO Location:UROLOGY Appointment Type:URO OV [facility] Evaluation note Note Date & Type Note Facility Evaluation note No assessment information availa [facility] Work Phone: Evaluation note Note Date & Type Note Facility Evaluation note Diagnosis Onset Date Acute bronchitis acute Acute frontal sinusitis, unspecified acute Acute bronchitis acute Acute frontal sinusitis, unspecified acute [facility] Work Phone: Evaluation note Note Date & Type Note Facility Evaluation note Diagnosis Onset Date Resolution GI bleed acute April 28 8:19am [facility] Work Phone: Hospital course Narrative Note Date & Type Note Facility Hospital course Narrative No data available for this section [facility] Hospital Discharge instructions Note Date & Type Note Facility Hospital Discharge instructions No data available for this section [facility] Progress note Note Date & Type Note Facility Progress note No data available for this section [facility] Reason for referral (narrative) Note Date & Type Note Facility Reason for referral (narrative) No reason for referral information available [facility] Work Phone: Chief Complaint and Reason for Visit Chief Complaint EORDER- cough Chief Complaint COUGH/CONGESTION COUGH/CONGESTION PERSISTANT COUGH/CONGESTION EORDER- L hand injury Reason for Visit Acute bronchitis Acute frontal sinusitis, unspecified Acute bronchitis Acute frontal sinusitis, unspecified Chief Complaint Admit Date SCREENING January 13, 2025 9:11am SOFT DARK STOOL BLEEDING April 28, 2025 8:19am Reason for Visit Admit Date GI bleed April 28, 2025 8:19 am Chief Complaint Admit Date SCREENING January 13, 2025 9:11am SOFT DARK STOOL BLEEDING April 28, 2025 8:19am EORDER May 01, 2025 8:42 am Summary Purpose Family History No Family History Records Found Advance Directives No Advanced Directives Records FoundNo Advanced Directives Records FoundNo Advanced Directives Records Found Additional Source Comments Goals (unrecognized section and content) Goals may be documented in a n alternate sectionGoals may be documented in an alternate sectionGoals may be documented in an alternate section No data available for this sectionGoals may be documented in an alternate sectionGoals may be documented in an alternate section Care Teams (unrecognized sec tion and content) Team Status: Active Member Role Status Dates Dr. Trell Schwartz MD Family Provider Active Dr. Zeus Lomas MD Primary Care Provider Active Team Status: Inactive Member Role Status Dates Dr. Trell Schwartz MD Primary Care Provider, Referr ing Provider Active Jeison DAMON, PA Attending Provider Active Team Status: Inactive Member Role Status Dates Dr. Trell Schwartz MD Primary Care Provider, Referr ing Provider Active Frandy Weeks PA, PA Attending Provider Active Team Status: Inactive Member Role Status Dates Dr. Trell Schwartz MD Primary Care Provider Active Dr. Zeus Lomas MD Attending Provider, Referring Pr ovider Active Team Status: Active Member Role Status Dates Dr. Trell Schwartz MD Family Provider Active Dr. Trell Schwartz MD Primary Care Provider Active Team Status: Inactive Member Role Status Dates Dr. Trell Schwartz MD Primary Care Pr ovider, Attending Provider, Referring Provider Active Team Status: Active Member Role Status Dates Dr. Trell Schwartz MD Primary Care Provider Active Team Status: Active Member Role Status Dates Dr. Trell Schwartz MD Primary Care Provider Active Start: January 13, 2025 Self Referred Attending Provider Active Start: ebruary 2024 Self Referred Referring Provider Active Start: F ebruary 2024 Team Status: Active Member Role Status Dates Dr. Trell Schwartz MD Primary Care Provider Active Start: January 13, 2025 Dr. Jarred Corona MD Attending Provider Active S tart: January 13, 2025 Team Status: Inactive Member Role Status Dates Dr. Trell Schwartz MD Primary Care Provider Active Start: April 28, 2025 End: April 28, 2025 Dr. Trell Schwartz MD Referring Provider Active Start: April 28, 2025 End: April 28, 2025 Dr. Spenser Garrison DO Attending Provider Active Start: April 28, 2025 End: April 28, 2025 Team Status: Inactive Member Role Status Dates Dr. Trell Schwartz MD Primary Care Provider Active Start: May 01, 2025 End: May 01, 2025 Dr. Spenser Garrison DO Attending Provider Active Start: May 01, 2025 End: May 01, 2025 Dr. Spenser Garrison DO Referring Provider Active Start: May 01, 2025 End: May 01, 2025 (unrecognized sect ion and content) No Status Records FoundNo Status Records FoundNo Status Records Found INFORMATION SOURCE (unrecogn ized section and content) DATE CREATED AUTHOR 12/18/2024 [facility] DATE CREATED AUTHOR AUTHOR'S ORGANIZ ATION 02/15/2025 [facility] DATE CREATED AUTHOR AUTHOR'S ORGANIZ ATION 05/08/2025 [facility] FOR RECORDS PERTAINING TO PATIENTS WHO ARE OR HAVE BEEN ENROLLED IN A CHEMICAL DEPENDENCY/SUBSTANCEABUSE PROGRAM, SOME INFORMATION MAY BE OMITTED. This clinical summary was aggregated from multiple sources. Caution should be exercised in using it in the provision of clinical care. This summary normalizes information from multiple sources, and as a consequence, information in this document may materially change the coding, format and clinical context of patient data. In addition, data may be omitted in some cases. CLINICAL DECISIONS SHOULD BE BASED ON THE PRIMARY CLINICAL RECORDS. [employer] provides no warranty or guarantee of the accuracy or completeness of information in this document.
== END | disposition home or self-care (01) ==
LOC: CT 06:09
PROVIDERS: PCP Family Medicine; Referring Provider Internal Medicine Gastroenterology; Visit Provider Internal Medicine Gastroenterology
DX: K92.2 Gastrointestinal hemorrhage, unspecified (principal)
CPT/HCPCS: 74177; Q9967

== ENCOUNTER → 2025-05-25 | Outpatient (CLI) | payer MEDICARE, OTHER, SELFPAY ==
--- OUTSIDE RECORDS SUMMARY | 2025-05-25 07:22 | XMS RPT_ITS | CCD ---
Author Organization [facility]ini[facility] Care Team Providers Care Workers' Compensation Hearings Officer Name Role Phone Dr. Trell Schwartz Primary Care Provider Dr. Trell Schwartz Referring Provider Jon DAMON PA Jeison Attending Provider [phone] Micky DAMON PA Frandy Olivier Attending Provider LANA MONTERO, TRELL Primary Care Physician YOAN KATZ Attending Shaina SCHWARTZ MD, TRELL Primary Care Unavailable YOAN KATZ Attending TRELL Johnson MD Primary Care Unavailable Dr. Trell Schwartz MD Primary Care Provider [phone] Referred, Self Attending Provider Unavailable Referred, Self Referring Provider Unavailable Dr. Jarred Corona MD Attending Provider Dr. Trell Schwartz MD Referring Provider [phone] Dr. Spenser Garrison DO Attending Provider Dr. Spenser Garrison DO Referring Provider YOAN KATZ Attending TRELL Johnson MD Primary Care TRELL Benavides MD Primary Care Unavailable YOAN KATZ Attending Shaina SCHWARTZ MD, TRELL Primary Care Unavailable YOAN KATZ Attending Dr. Trell Johnson MD Primary Care Provider [phone] Trell Schwartz Primary Care Unavailable Spenser Garrison Attending Unavailable Trell Schwartz Referring Unavailable Spenser Garrison Attending Unavailable Trell Schwartz Primary Care Unavailable Spenser Garrison Referring Unavailable Trell Schwartz Referring Unavailable Trell Schwartz Primary Care Unavailable Trell Schwartz Attending Unavailable Referred, Self Attending Unavailable Referred, Self Referring Unavailable Trell Schwartz Primary Care Unavailable Trell Schwartz Primary Care Unavailable Friend, Spenser Attending Unavailable Friend, Spenser Referring Unavailable Trell Schwartz Primary Care Unavailable Trell Schwartz Attending Unavailable Trell Schwartz Referring Unavailable Jarred Corona Attending Unavailable Trell Schwartz Primary Care Unavailable Medications Current Medications Medication Drug Class(es) Dates Sig (Normalized) Sig (Original) cholecalciferol 0.025 mg oral capsule (3 sources) Vitamin D Start: 04-28-2025 take 1 capsule by mouth once daily Cholecalciferol (Vitamin D3) 25 mcg (1,000 unit) capsule Active 25 ug PO daily April 28, 2025 12:00am Chondroitin Sulfates / Glucosamine (2 sources) Start: 10-26-2024 Chondroitin-Glucosam ine 400 mg-500 mg oral tablet 0 Refill(s) Start Date: 10/26/24 Status: Ordered Repeat number: 1 glucosamine sulfate 500 mg oral tablet (5 sources) Start: 12-29-2022 take 1 tablet by mouth once daily Glucosamine Sulfate (Glucosamine) 500 mg tablet Active 500 mg PO DAILY December 29, 2022 1:00am administer with a meal Multivitamin (Daily Multi-Vitamin) tablet (5 sources) Start: 12-29-2022 Multivitamin (Daily Multi-Vitamin) tablet [...] DAILY December 29, 2022 1:00am Multivitamin preparation (2 sources) Start: 10-26-2024 take 1 tablet by mouth once daily Multivitamin Dose = 1 tab(s), Oral, Daily, 0 Refill(s) Start Date: 10/26/24 Status: Ordered Repeat number: 1 Vitamin D3 25 mcg (1000 intl units) oral tablet (2 sources) Start: 10-26-2024 take 1 tablet by mouth once daily Vitamin D3 25 mcg (1000 intl units) oral tablet mcg = tab(s), Oral, qDay, 0 Refill(s) Start Date: 10/26/24 Status: Ordered Repeat number: 1 Completed/Discontinued Medications Medication Drug Class(es) Dates Sig (Normalized) Sig (Original) amoxicillin 500 mg oral capsule (5 sources) Penicillin-class Antibacterial Start: 02-16-2023 End: 03-02-2023 take 1 capsule by mouth three times daily Amoxicillin 500 mg capsule Discontinued 500 mg PO THREE TIMES A DAY 42 14 0 February 16, 2023 12:00am March 01, 2023 12:00am March 02, 2023 12:04am azithromycin 250 mg oral tablet (10 sources) Macrolide Antimicrobial Start: 03-03-2023 End: 04-28-2025 take 2-5 tablets by mouth once daily Azithromycin 250 mg tablet Discontinued 0 PO .COMPLEX 6 0 March 03, 2023 12:00am April 28, 2025 8:35am take 500 mg today (day 1), then 250 mg for 4 days (days 2-5) PO Start: 12-29-2022 End: 02-16-2023 take 2-5 tablets by mouth once daily Azithromycin 250 mg tablet Discontinued 0 PO .COMPLEX 6 0 December 29, 2022 1:00am February 16, 2023 12:03pm take 500 mg today (day 1), then 250 mg for 4 days (days 2-5) PO methylPREDNISolone 4 mg oral tablet (5 sources) Corticosteroid Start: 03-03-2023 End: 03-09-2023 take 1 tablet by mouth once Methylprednisolone (Medrol (Endy)) 4 mg tablets,dose pack Discontinued 4 mg PO per package directions 21 6 0 March 03, 2023 12:00am March 08, 2023 12:00am March 09, 2023 12:03am Problems Active Problems Problem Classification Problem Date Documented Da te Episodic/Chronic Acute bronchitis (7 sources) Acute bronchitis; Translations: [Acute bronchitis, unspecified] 12-29-2022 Episodic Gastrointestinal hemorrhage (7 sources) Gastrointestinal hemorrhage; Translations: [Gastrointestinal hemorrhage, unspecified] Onset: 04-28-2025 Episodic Hyperplasia of prostate (1 source) Benign prostatic hypertrophy without outflow obstruction 11-23-2024 Chronic Other gastrointestinal disorders (1 source) Irritable bowel syndrome without diarrhea; Translations: [Irritable bowel syndrome, unspecified] Onset: 5 Chronic Other lower respiratory disease (1 source) Solitary pulmonary nodule; Translations: [Solitary pulmonary nodule] Onset: 5 Episodic Other upper respiratory infections (7 sources) Acute frontal sinusitis; Translations: [Acute frontal sinusitis, unspecified] 02-16-2023 Episodic Past or Other Problems Problem Classification Problem Date Documented Da te Episodic/Chronic Other screening for suspected conditions (not mental disorders or infectious disease) (3 sources) Raised prostate specific antigen; Translations: [Encounter for screening for malignant neoplasm of prostate] Onset: 11-11-2024 10-26-2024 Episodic Results Test Name Value Interpretation Reference Range Facility LABORATORYOrdered By: SYSTEM SYSTEM on 05-11-2025 Prostate specific Ag [Mass/Vol] 0.78 ng/mL Normal 0.00 - 4.00 ng/mL AO ADM SS PSAon 05-11-2025 Prostate Specific Antigen 0.78 ng/mL Normal 0.00-4.00 [facility] Comment on above: Performed By: #### P SA #### [facility] [address], [place] [address] Abdomen/Pelvis WITH Contrast on 05-09-2025 Abdomen/Pelvis WITH Contrast [facility] Services [address] [place] [address] [id number] Abdomen/Pelvis WITH Contrast MR#: [id number] Acct: [id number] Name: DERICK GALINDO Rep #: [id number] : 1955 M 69 From: Cody Dinero MD PCP: Dr. Trell Schwartz MD Status: REG CLI Study: Abdomen/Pelvis WITH Contrast Date of Exam: Exam# [id number] Ordering Dr: Spenser Garrison DO PROCEDURE: ABDOMEN/PELVIS WITH CONTRAST 05/09/2025 REASON FOR EXAM: GI BLEED TECHNIQUE: ABDOMEN/PELVIS WITH oral and IV CONTRAST Coronal and Sagittal reconstruction series were provided. CONTRAST: Isovue 370 VOLUME: 80 mL One or more dose reduction techniques were used (e.g., Automated exposure control, adjustment of the mA and/or kV according to patient size, use of iterative reconstruction technique. RADIATION DOSE SUMMARY: CTDlvol: 18.3 mGy DLP: 1046 mGycm COMPARISON: None FINDINGS: Lung bases: Multivessel coronary calcifications. Triangular nodule in the right lower lobe measuring 3 mm (series 2, image 6). Bibasilar atelectasis. Liver: Subcentimeter hypodensities are too small to characterize. Gallbladder: Unremarkable Spleen: Normal size. Pancreas: Normal size without evidence of mass surrounding inflammation or ductal dilation. Adrenals: Unremarkable Kidneys: No hydronephrosis or stone. Bilateral simple cysts. Additional subcentimeter hypodensities are too small to characterize. Bladder: Unremarkable Reproductive Organs: Mild prostatomegaly Bowel: No obstruction or inflammation. Presence of oral contrast limits evaluation for active gastrointestinal bleeding. Appendix: The appendix is not identified. There is no inflammatory process identified in the right lower quadrant to suggest appendicitis. Lymph nodes: No suspicious lymph node enlargement. Vasculature: Mild diffuse atherosclerotic calcifications are noted. Bones: Degenerative changes of the spine and sacroiliac joints. Soft tissues: There are round an ovoid hypodense lesions in the left rectus femoris muscle, which demonstrate peripheral hyperenhancement and measure slightly above simple fluid density and up to 4.0 cm in size. Postoperative changes from bilateral inguinal hernia repair. CT/Abdomen/Pelvis WITH Contrast IMPRESSION: 1. No definite evidence for an acute intra-abdominal abnormality. Presence of oral contrast precludes evaluation for active gastrointestinal bleeding. 2. Hypodense lesions with peripheral enhancement within the left rectus femoris muscle, partially imaged and measuring up to 4.0 cm in size. Findings could represent intramuscular abscess, hematoma, muscle injury, or neoplasm. Correlate with history and exam. 3. Pulmonary nodule measuring 3 mm in the right lower lobe. Consider CT chest in 12 months if patient is at high risk for malignancy per Fleischner society guidelines. Reading Location: [id number] CC: Dr. Trell Schwartz MD; Spenser Garrison, Lumber Tripper: Signed Normal [facility] M7400.3302on 05-06-2025 M7400.3302 __ TESTING PERFORMED AT [facility]. ORIGINAL REPORT ON FILE IN LAB CONTAINS ADDITIONAL TEST SITE INFORMATION. Giardia Lamblia EIA NEGATIVE Normal [facility] Comment on above: Performed By: #### L 506.1000, L500.4050 #### [facility] [address] [place], [place], [id number] Ova and Parasites 8623on OP OVA AND PARASITES EXAM, ROUTINE These results were obtained using wet preparation(s) and trichrome stained smear. This test does not include testing for Crytosporidium parvum, Cyclospora, or Microsporidia. One negative specimen does not rule out the possibility of a parasitic infection. TESTING PERFORMED AT [facility]. ORIGINAL REPORT ON FILE IN LAB CONTAINS ADDITIONAL TEST SITE INFORMATION. Ova/Parasite Exam NO OVA, CYSTS, OR PARASITES FOUND. Normal [facility] Comment on above: Performed By: #### L 7000.0700, M600.5000, L7000.0300, L7000.0750, M7400.3302, M100.0605, M100.7900 #### [facility] [address] [place], [place], [address] Calprotectin, Stoolon [address] 21 ug/g Normal 0-120 [facility] Comment on above: Order Comment: Test( s) 172790-Uybl, Neutral; 296647-Mtms, Total was developed and its performance characteristics determined by [facility]. It has not been cleared or approved by the Food and Drug Administration. Result Comment: Conc entration Interpretation Follow-Up < 5 - 50 ug/g Normal None >50 -120 ug/g Borderline Re-evaluate in 4-6 weeks >120 ug/g Abnormal Repeat as clinically indicated Performed at: [facility] Lab[address] [id number] Program Schedule Clerk: Anders Tillman PhD, Phone: [phone] Performed at: [facility] Lab[address] [id number] Program Schedule Clerk: Meche Gates MD, Phone: [phone] Performed By: #### L 7000.0700, M600.5000, L7000.0300, L7000.0750, M7400.3302, M100.0605, M100.7900 #### [facility] [address] [place], [place], [id number] (295) Fecal Fat, Qualitativeon FATS, NEUTRAL Normal Normal . [facility] Comment on above: Order Comment: Test( s) 599996-Dijp, Neutral; 127520-Hvjf, Total was developed and its performance characteristics determined by [facility]. It has not been cleared or approved by the Food and Drug Administration. Result Comment: Norm al (<60 Droplets/HPF) Performed By: #### L 7000.0700, M600.5000, L7000.0300, L7000.0750, M7400.3302, M100.0605, M100.7900 #### [facility] [address] [place], [address] FATS, TOTAL Increased Normal . [facility] Comment on above: Order Comment: Test( s) 075018-Eefu, Neutral; 344800-Tfgq, Total was developed and its performance characteristics determined by [facility]. It has not been cleared or approved by the Food and Drug Administration. Result Comment: Norm al (<100 Droplets/HPF) Performed By: #### L 7000.0700, M600.5000, L7000.0300, L7000.0750, M7400.3302, M100.0605, M100.7900 #### [facility] [address] [place], [place], [address] L7000.0750on 05-03-2025 P ELASTASE,FECA > 800 Normal >200 [facility] Comment on above: Result Comment: Resu lt Units: ug Elast./g Severe Pancreatic Insufficiency: <100 Moderate Pancreatic Insufficiency: 100 - 200 Normal: >200 Performed at: [facility] [id number] Program Schedule Clerk: Meche Gates MD, Phone: [phone] Performed By: #### L 7000.0700, M600.5000, L7000.0300, L7000.0750, M7400.3302, M100.0605, M100.7900 #### [facility] [address] [place], [place], [address] Calprotectin stoolOrdered By : Spenser Garrison on 05-01-2025 Calprotectin stool 21 ug/g 0-120 [facility] Comment on above: Concentration Interp retation Follow-Up< 5 - 50 ug/g Normal None>50 -120 ug/g Borderline Re-evaluate in 4-6 weeks >120 ug/g Abnormal Repeat as clinically indicatedPerformed at: [facility] [id number] Director: Anders Tillman PhD, Phone: [phone] at: [facility] [employer] [id number] Director: Meche Gates MD, Phone: [phone] Fecal fat detectionOrdered B y: Spenser Garrison on 05-01-2025 Fat Ql (Stl) Increased . [facility] Comment on above: Normal (<100 Droplet s/HPF) No Panel InformationOrdered By: Spenser Garrison on 05-01-2025 Stool Neutral Fats Normal . [facility] Comment on above: Normal (<60 Droplets /HPF) Stool Lactoferrin/WBCon 04-16 WBCST Normal Reference Ran ge = Negative Fecal WBC Lactoferrin Negative: No Fecal WBC Lactoferrin present Normal [facility] Comment on above: Performed By: #### L 7000.0700, M600.5000, L7000.0300, L7000.0750, M7400.3302, M100.0605, M100.7900 #### [facility] [address] [place], [place], [address] Stool Occult Blood iFOBon STOB Negative Normal [facility] Comment on above: Performed By: #### L 7000.0700, M600.5000, L7000.0300, L7000.0750, M7400.3302, M100.0605, M100.7900 #### [facility] [address] [place], [place], [address] Stool gastrointestinal hemog lobin detection by immunologic methodOrdered By: Spenser Garrison on 05-01-2025 Lower GI hemoglobin IA Ql (Stl) [facility] Stool lactoferrin detection by immunoassayOrdered By: Spenser Garrison on 05-01-2025 Lactoferrin IA Ql (Stl) [facility] Stool pancreatic elastase me asurement (mass/mass)Ordered By: Spenser Garrison on 05-01-2025 Elastase.pancreatic (Stl) [Mass/Mass] > 800 >200 [facility] Comment on above: Result Units: ug Sisi st./g Severe Pancreatic Insufficiency: <100 Moderate Pancreatic Insufficiency: 100 - 200 Normal: >200Performed at: - Lab[address] [id number] Director: Meche Gates MD, Phone: [phone] Gastroenterology Visit Repor ton 04-28-2025 Gastroenterology Visit Report [facility] [address] [place] [address] OFFICE VISIT Date of Service: 04/28/25 MR#: [id number] Acct: [id number] Name: DERICK GALINDO Rep #: [id number] : 1955 Provider: Spenser Garrison DO Age/Sex: 69/M [place] [facility] [place]: Signed Intake Vital Signs 02/16/23 12:00 [...] office today for initial consult. *BGI established 04.28.25 pt reports he is establishing with GI [...] habitus Orientation: alert, awake and oriented x3 [facility] Head: normal to inspection Ears: hearing grossly [...] was not (more content not included)... Normal [facility] PSAon 02-14-2025 Prostate Specific Antigen 1.32 ng/mL Normal 0.00-4.00 [facility] Comment on above: Performed By: #### P SA #### [facility] [address], [place] [address] LABORATORYOrdered By: SYSTEM SYSTEM on 11-15-2024 Prostate specific Ag [Mass/Vol] 2.63 ng/mL Normal 0.00 - 4.00 ng/mL AO ADM SS PSAon 11-15-2024 Prostate Specific Antigen 2.63 ng/mL Normal 0.00-4.00 [facility] Comment on above: Performed By: #### P SA #### [facility] [address], [place] [address] Comprehensive Metabolic Prof ilon 10-12-2024 Albumin [Mass/Vol] 3.5 g/dL Normal 3.2-5.0 [facility] Comment on above: Order Comment: Order Date: 09/13/24 Order Info: 0786-1 - CMP Order Info: [id number] - PSA Performed By: #### L 506.1000, L500.4050 #### [facility] [address] [place], [address] Albumin/Globulin [Mass ratio] 0.9 {ratio} Normal 0.9-2.4 [facility] Comment on above: Order Comment: Order Date: 09/13/24 Order Info: 0786-1 - CMP Order Info: 285- - PSA Performed By: #### L 506.1000, L500.4050 #### [facility] [address] [place], [address] ALK P 78 U/L Normal 45-117 [facility] Comment on above: Order Comment: Order Date: 09/13/24 Order Info: 0786-1 - CMP Order Info: 2857-1 - PSA Performed By: #### L 506.1000, L500.4050 #### [facility] [address] [place], [address] ALT [Catalytic activity/Vol] 21 U/L Normal 16-61 [facility] Comment on above: Order Comment: Order Date: 09/13/24 Order Info: 0786-1 - CMP Order Info: 2857-1 - PSA Performed By: #### L 506.1000, L500.4050 #### [facility] [address] [place], [address] AST [Catalytic activity/Vol] 15 U/L Normal 15-37 [facility] Comment on above: Order Comment: Order Date: 09/13/24 Order Info: 785-1 - CMP Order Info: 2857-1 - PSA Performed By: #### L 506.1000, L500.4050 #### [facility] [address] [place], [address] Bilirubin [Mass/Vol] 0.50 mg/dL Normal 0.20-1.00 [facility] Comment on above: Order Comment: Order Date: 09/13/24 Order Info: 785-1 - CMP Order Info: 2857-1 - PSA Result Comment: For patients on eltrombopag therapy, use of Dimension Morton TBIL is not recommended. Performed By: #### L 506.1000, L500.4050 #### [facility] [address] [place], [address] BUN/CRE 12.0 RATIO Normal 10-20 [facility] Comment on above: Order Comment: Order Date: 09/13/24 Order Info: 07-1 - CMP Order Info: 285-1 - PSA Performed By: #### L 506.1000, L500.4050 #### [facility] [address] [place], [address] CA,Total 9.0 mg/dL Normal 8.5-10.1 [facility] Comment on above: Order Comment: Order Date: 09/13/24 Order Info: 86-1 - CMP Order Info: 2857-1 - PSA Performed By: #### L 506.1000, L500.4050 #### [facility] [address] [place], [address] Chloride [Moles/Vol] 107 mmol/L Normal 98-107 [facility] Comment on above: Order Comment: Order Date: 09/13/24 Order Info: 785-11 - CMP Order Info: 2856-11 - PSA Performed By: #### L 506.1000, L500.4050 #### [facility] [address] [place], [address] CO2 [Moles/Vol] 29.0 mmol/L Normal 21.0-32.0 [facility] Comment on above: Order Comment: Order Date: 09/13/24 Order Info: 785-11 - CMP Order Info: 2856-11 - PSA Performed By: #### L 506.1000, L500.4050 #### [facility] [address] [place], [address] Creatinine [Mass/Vol] 0.83 mg/dL Normal 0.70-1.30 [facility] Comment on above: Order Comment: Order Date: 09/13/24 Order Info: 785-11 - CMP Order Info: 2856-11 - PSA Result Comment: The validity of the calculated GFR GFRAA in patients over 70 years has not been determined. Clinical correlation is essential. Performed By: #### L 506.1000, L500.4050 #### [facility] [address] [place], [address] EST GFR - AA 118 mL/min Normal >60 [facility] Comment on above: Order Comment: Order Date: 09/13/24 Order Info: 785-11 - CMP Order Info: 2856-11 - PSA Result Comment: Afri can Greenlandic GFR Calc Performed By: #### L 506.1000, L500.4050 #### [facility] [address] [place], [address] GAP 4 Low 5-15 [facility] Comment on above: Order Comment: Order Date: 09/13/24 Order Info: 0786 - CMP Order Info: [id number] - PSA Performed By: #### L 506.1000, L500.4050 #### [facility] [address] [place], [address] GFR/1.73 sq M.predicted among non-blacks MDRD (S/P/Bld) [Vol rate/Area] 98 mL/min/{1.73_m2} Normal >60 [facility] Comment on above: Order Comment: Order Date: 09/13/24 Order Info: 07 - CMP Order Info: 2856-11 - PSA Result Comment: Non- GFR Calc Performed By: #### L 506.1000, L500.4050 #### [facility] [address] [place], [address] Globulin (S) [Mass/Vol] 4.1 g/dL Normal 2.2-4.2 [facility] Comment on above: Order Comment: Order Date: 09/13/24 Order Info: 0786 - CMP Order Info: [id number] - PSA Performed By: #### L 506.1000, L500.4050 #### [facility] [address] [place], [address] Glucose [Mass/Vol] 105 mg/dL Normal 74-106 [facility] Comment on above: Order Comment: Order Date: 09/13/24 Order Info: 0786- - CMP Order Info: [id number] - PSA Result Comment: Fast ing Glucose result from 100 to 125 mg/dL suggests IMPAIRED HOMEOSTASIS per A.D.A. criteria. Performed By: #### L 506.1000, L500.4050 #### [facility] [address] [place], [address] Potassium [Moles/Vol] 4.1 mmol/L Normal 3.5-5.1 [facility] Comment on above: Order Comment: Order Date: 09/13/24 Order Info: 0786- - CMP Order Info: 2856-11 - PSA Performed By: #### L 506.1000, L500.4050 #### [facility] [address] [place], [address] Sodium [Moles/Vol] 140 mmol/L Normal 136-145 [facility] Comment on above: Order Comment: Order Date: 09/13/24 Order Info: 07- - CMP Order Info: 2856-11 - PSA Performed By: #### L 506.1000, L500.4050 #### [facility] [address] [place], [address] T PROT 7.6 g/dL Normal 6.4-8.2 [facility] Comment on above: Order Comment: Order Date: 09/13/24 Order Info: 0786 - CMP Order Info: 2856-11 - PSA Performed By: #### L 506.1000, L500.4050 #### [facility] [address] [place], [address] Urea nitrogen [Mass/Vol] 10 mg/dL Normal 7-18 [facility] Comment on above: Order Comment: Order Date: 09/13/24 Order Info: 0786 - CMP Order Info: 2856-11 - PSA Performed By: #### L 506.1000, L500.4050 #### [facility] [address] [place], [address] PSA,Total - Annual Screenon 10-12-2024 PSA,TOT SCREEN 11.10 ng/mL High 0.00-4.00 [facility] Comment on above: Order Comment: Order Date: 09/13/24 Order Info: 0786- - CMP Order Info: [id number] - PSA Result Comment: This test was performed using the TPSA assay method for the [employer] chemistry system. Values obtained with different assay methods cannot be used interchangably. When changing PSA assays in the course of monitoring a patient, additional sequential testing should be carried out to confirm baseline values. Performed By: #### L 501.9910 #### [facility] [address] [place], [place], [address] Vitamin D,25 Hydroxyon 10-12 Vitamin D 25-OH 30.0 ng/mL Normal [facility] Comment on above: Order Comment: Order Date: 09/13/24 Order Info: 32844-6 - VITD25 Result Comment: Reanna min D 25(OH) Status Range Deficiency <20 ng/mL (50nmol/L) Insufficiency 20 - 30 ng/mL (50 - 75 nmol/L) Sufficiency 30 - 100 ng/mL (75 - 250 nmol/L) Toxicity >100 ng/mL (>250 nmol/L) Performed By: #### L 506.1000, L500.4050 #### [facility] [address] [place], [address] Basophil percentageOrdered B y: Trell Schwartz on 09-23-2023 Bilirubin [Mass/Vol] 0.80 mg/dL 0.20-1.00 [facility] Comment on above: For patients on eltr ombopag therapy, use of Dimension Morton TBIL is not recommended. Chloride [Moles/Vol] 106 mmol/L 98-107 [facility] Cholesterol [Mass/Vol] 185 mg/dL <200 [facility] Comment on above: <200 mg/dL Desirable 200-240 mg/dL Borderline >240 mg/dL High Risk Glucose [Mass/Vol] 98 mg/dL 74-106 [facility] Potassium [Moles/Vol] 4.2 mmol/L 3.5-5.1 [facility] Protein [Mass/Vol] 7.7 g/dL 6.4-8.2 [facility] Sodium [Moles/Vol] 140 mmol/L 136-145 [facility] Triglyceride [Mass/Vol] 121 mg/dL <199 [facility] Comment on above: The drugs N-Acetylcy steine and Metamizole may falsely depress this assay.Serum Triglycerides Reference Interval Normal <150 mg/dL Borderline high 150 - 199 mg/dL High 200 - 499 mg/dL Very High > or = 500 mg/dL Laboratory - Chemistry and C hemistry - challengeOrdered By: Trell Schwartz on 09-23-2023 ALP [Catalytic activity/Vol] 78 U/L 45-117 [facility] ALT [Catalytic activity/Vol] 30 U/L 16-61 [facility] CO2 [Moles/Vol] 28.0 mmol/L 21.0-32.0 [facility] Globulin (S) [Mass/Vol] 4.1 g/dL 2.2-4.2 [facility] Urea nitrogen/Creatinine [Mass ratio] 14.5 mg/mg 10-20 [facility] No Panel InformationOrdered By: Trell Schwartz on 09-23-2023 Estimated GFR (MDRD) Amer 120 mL/min >60 [facility] Comment on above: GFR Calc Estimated GFR (MDRD) Non-Af Amer 99 mL/min >60 [facility] Comment on above: Non- GFR Calc Prostate Specific Antigen Screen 0.86 ng/mL 0.00-4.00 [facility] Comment on above: This test was perfor med using the TPSA assay method for [employer] chemistry system. Values obtained with differentassay methods cannot be used interchangably.When changing PSA assays in the course of monitoring apatient, additional sequential testing should be carriedout to confirm baseline values. Serum or plasma albumin rochelle urement (mass/volume)Ordered By: Trell Schwartz on 09-23-2023 Albumin [Mass/Vol] 3.6 g/dL 3.2-5.0 [facility] Serum or plasma albumin/glob ulin mass ratioOrdered By: Trell Schwartz on 09-23-2023 Albumin/Globulin [Mass ratio] 0.9 {ratio} 0.9-2.4 [facility] Serum or plasma calcium rochelle urement (mass/volume)Ordered By: Trell Schwartz on 09-23-2023 Calcium [Mass/Vol] 9.0 mg/dL 8.5-10.1 [facility] Serum or plasma cholesterol in HDL measurement (mass/volume)Ordered By: Trell Schwartz on 09-23-2023 Cholesterol in HDL [Mass/Vol] 42 mg/dL >40 [facility] Comment on above: The drugs N-Acetylcy steine and Metamizole may falsely depress this assay. Reference Range HDL <40 mg/dL Low HDL Cholesterol HDL >or= 60 mg/dL High HDL Cholesterol Serum or plasma cholesterol in VLDL measurement (mass/volume)Ordered By: Trell Schwartz on 09-23-2023 Cholesterol in VLDL [Mass/Vol] 24 mg/dL 5-40 [facility] Serum or plasma creatinine m easurement (mass/volume)Ordered By: Trell Schwartz on 09-23-2023 Creatinine [Mass/Vol] 0.83 mg/dL 0.70-1.30 [facility] Comment on above: The validity of the calculated GFR & GFRAA in patients over 70 years has not been determined. Clinical correlation is essential. Serum or plasma low density lipoprotein (LDL) cholesterol measurement (mass/volume)Ordered By: Trell Schwartz on 09-23-2023 Cholesterol in LDL [Mass/Vol] 119 mg/dL 0-130 [facility] Serum or plasma urea nitroge n measurement (mass/volume)Ordered By: Trell Schwartz on 09-23-2023 Urea nitrogen [Mass/Vol] 12 mg/dL 7-18 [facility] Thin prep Papanicolaou smear with manual screeningOrdered By: Trell Schwartz on 09-23-2023 Thin prep Papanicolaou smear with manual screening 16 U/L 15-37 [facility] Thin prep Papanicolaou smear with manual screening 6 5-15 [facility] Absolute lymphocyte counton 09-23-2022 Lymphocytes Auto (Unsp spec) [#/Vol] 1.48 10*3/uL 0.83-4.51 [facility] Work Phone: Basophil percentageon 2021 Basophils/100 WBC (Bld) 0.9 % 0-1 [facility] Work Phone: Bilirubin [Mass/Vol] 0.90 mg/dL 0.20-1.00 [facility] Work Phone: Comment on above: For patients on eltr ombopag therapy, use of Dimension Morton TBIL is not recommended. Chloride [Moles/Vol] 103 mmol/L 98-107 [facility] Work Phone: Cholesterol [Mass/Vol] 198 mg/dL <200 [facility] Work Phone: Comment on above: <200 mg/dL Desirable 200-240 mg/dL Borderline >240 mg/dL High Risk Eosinophils/100 WBC (Bld) 2.8 % 0-5 [facility] Work Phone: Glucose [Mass/Vol] 91 mg/dL 74-106 [facility] Work Phone: Neutrophils (Bld) [#/Vol] 3.2 10*3/uL 2.0-7.7 [facility] Work Phone: Neutrophils/100 WBC (Bld) 59.1 % 47-70 [facility] Work Phone: Potassium [Moles/Vol] 4.3 mmol/L 3.5-5.1 [facility] Work Phone: Protein [Mass/Vol] 7.9 g/dL 6.4-8.2 [facility] Work Phone: Sodium [Moles/Vol] 138 mmol/L 136-145 [facility] Work Phone: Triglyceride [Mass/Vol] 94 mg/dL <199 [facility] Work Phone: Comment on above: The drugs N-Acetylcy steine and Metamizole may falsely depress this assay.Serum Triglycerides Reference Interval Normal <150 mg/dL Borderline high 150 - 199 mg/dL High 200 - 499 mg/dL Very High > or = 500 mg/dL WBC (Bld) [#/Vol] 5.4 10*3/uL 4.4-11.0 [facility] Work Phone: Blood erythrocytes count (nu mber/volume)on 09-23-2022 RBC (Bld) [#/Vol] 5.00 10*6/uL 4.6-6.2 [facility] Work Phone: Blood hemoglobin measurement (mass/volume)on 09-23-2022 Hemoglobin (Bld) [Mass/Vol] 16.1 g/dL 13.0-16.5 [facility] Work Phone: Blood lymphocytes/100 leukoc yteson 09-23-2022 Lymphocytes/100 WBC (Bld) 27.4 % 19-41 [facility] Work Phone: Blood monocytes/100 leukocyt eson 09-23-2022 Monocytes/100 WBC (Bld) 9.6 % 0-10 [facility] Work Phone: Blood platelet mean volumeon 09-23-2022 Platelet mean volume (Bld) [Entitic vol] 10.5 fL 6.2-12.0 [facility] Work Phone: Determination of erythrocyte mean corpuscular volume (MCV)on 09-23-2022 MCV (RBC) [Entitic vol] 95.2 fL 80-94 [facility] Work Phone: Hematocrit Auto (Bld) [Volum e fraction]on 09-23-2022 Hematocrit (Bld) [Volume fraction] 47.6 % 40-54 [facility] Work Phone: Laboratory - Chemistry and C hemistry - challengeon 09-23-2022 ALP [Catalytic activity/Vol] 74 U/L 45-117 [facility] Work Phone: ALT [Catalytic activity/Vol] 24 U/L 16-61 [facility] Work Phone: CO2 [Moles/Vol] 27.0 mmol/L 21.0-32.0 [facility] Work Phone: Globulin (S) [Mass/Vol] 3.9 g/dL 2.2-4.2 [facility] Work Phone: Urea nitrogen/Creatinine [Mass ratio] 14.9 mg/mg 10-20 [facility] Work Phone: Laboratory - Hematology and Cell countson 09-23-2022 Erythrocyte distribution width (RBC) [Entitic vol] 45.8 fL 35.1-43.9 [facility] Work Phone: Erythrocyte distribution width (RBC) [Ratio] 13.0 % 11.6-14.6 [facility] Work Phone: Immature granulocytes/100 WBC (Bld) 0.200 % 0.0-0.9 [facility] Work Phone: Comment on above: IG% - Immature Granu locytes (promyelocytes, myelocytes and metamyelocytes) > 1% indicates that a LEFT SHIFT is Present. MCH (RBC) [Entitic mass] 32.2 pg 27.0-32.0 [facility] Work Phone: Nucleated RBC/100 WBC (Bld) [Ratio] 0 % 0-5 [facility] Work Phone: MCHC Auto (RBC) [Mass/Vol]on 09-23-2022 MCHC (RBC) [Mass/Vol] 33.8 g/dL 32-36 [facility] Work Phone: No Panel Informationon 09-23 Estimated GFR (MDRD) Amer 124 mL/min >60 [facility] Work Phone: Comment on above: GFR Calc Estimated GFR (MDRD) Non-Af Amer 102 mL/min >60 [facility] Work Phone: Comment on above: Non- GFR Calc Prostate Specific Antigen Screen 0.72 ng/mL 0.00-4.00 [facility] Work Phone: Comment on above: This test was perfor med using the TPSA assay method [facility] the[facility]. Values obtained with differentassay methods cannot be used interchangably.When changing PSA assays in the course of monitoring apatient, additional sequential testing should be carriedout to confirm baseline values. Thyroid Stimulating Hormone (TSH) 1.57 uIU/mL 0.358-3.74 [facility] Work Phone: Platelets bldon 09-23-2022 Platelets (Bld) [#/Vol] 196 10*3/uL 150-450 [facility] Work Phone: Serum or plasma albumin rochelle urement (mass/volume)on 09-23-2022 Albumin [Mass/Vol] 4.0 g/dL 3.2-5.0 [facility] Work Phone: Serum or plasma albumin/glob ulin mass ratioon 09-23-2022 Albumin/Globulin [Mass ratio] 1.0 {ratio} 0.9-2.4 [facility] Work Phone: Serum or plasma calcium rochelle urement (mass/volume)on 09-23-2022 Calcium [Mass/Vol] 9.3 mg/dL 8.5-10.1 [facility] Work Phone: Serum or plasma cholesterol in HDL measurement (mass/volume)on 09-23-2022 Cholesterol in HDL [Mass/Vol] 46 mg/dL >40 [facility] Work Phone: Comment on above: The drugs N-Acetylcy steine and Metamizole may falsely depress this assay. Reference Range HDL <40 mg/dL Low HDL Cholesterol HDL >or= 60 mg/dL High HDL Cholesterol Serum or plasma cholesterol in VLDL measurement (mass/volume)on 09-23-2022 Cholesterol in VLDL [Mass/Vol] 19 mg/dL 5-40 [facility] Work Phone: Serum or plasma creatinine m easurement (mass/volume)on 09-23-2022 Creatinine [Mass/Vol] 0.81 mg/dL 0.70-1.30 [facility] Work Phone: Comment on above: The validity of the calculated GFR & GFRAA in patients over 70 years has not been determined. Clinical correlation is essential. Serum or plasma low density lipoprotein (LDL) cholesterol measurement (mass/volume)on 09-23-2022 Cholesterol in LDL [Mass/Vol] 133 mg/dL 0-130 [facility] Work Phone: Serum or plasma urea nitroge n measurement (mass/volume)on 09-23-2022 Urea nitrogen [Mass/Vol] 12 mg/dL 7-18 [facility] Work Phone: Thin prep Papanicolaou smear with manual screeningon 09-23-2022 Thin prep Papanicolaou smear with manual screening 14 U/L 15-37 [facility] Work Phone: Thin prep Papanicolaou smear with manual screening 8 5-15 [facility] Work Phone: Vital Signs Date Time Vital Sign Value Performing Clinician Faci lity 03-03-2023 07:55-0400 Body temperature 98.6 [degF] Dr. Trell Schwartz Work Phone: [facility] 03-03-2023 07:55-0400 Diastolic blood pressure 90 mm[Hg] Dr. Trell Schwartz Work Phone: [facility] 03-03-2023 07:55-0400 Heart rate 80 /min Dr. Trell Schwartz Work Phone: [facility] 03-03-2023 07:55-0400 Respiratory rate 16 /min Dr. Trell Schwartz Work Phone: [facility] 03-03-2023 07:55-0400 SaO2% (BldA) [Mass fraction] 98 % Dr. Trell Schwartz Work Phone: [facility] 03-03-2023 07:55-0400 Systolic blood pressure 136 mm[Hg] Dr. Trell Schwartz Work Phone: [facility] 02-16-2023 12:00-0400 Body height 183.[address] Trell Schwartz Work Phone: [facility] 02-16-2023 12:00-0400 Body mass index (BMI) [Ratio] 27.8 kg/m2 Dr. Trell Schwartz Work Phone: [facility] 02-16-2023 12:00-0400 Body temperature 98.2 [degF] Dr. Trell Schwartz Work Phone: [facility] 02-16-2023 12:00-0400 Body weight 93.[address] Trell Schwartz Work Phone: [facility] 02-16-2023 12:00-0400 Diastolic blood pressure 82 mm[Hg] Dr. Trell Schwartz Work Phone: [facility] 02-16-2023 12:00-0400 Heart rate 84 /min Dr. Trell Schwartz Work Phone: [facility] 02-16-2023 12:00-0400 Respiratory rate 12 /min Dr. Trell Schwartz Work Phone: [facility] 02-16-2023 12:00-0400 SaO2% (BldA) [Mass fraction] 97 % Dr. Trell Schwartz Work Phone: [facility] 02-16-2023 12:00-0400 Systolic blood pressure 136 mm[Hg] Dr. Trell Schwartz Work Phone: [phone] [place] [address] 12-29-2022 11:00-0500 Body mass index (BMI) [Ratio] 27.9 kg/m2 Dr. Trell Schwartz Work Phone: [facility] 12-29-2022 11:00-0500 Body temperature 98.4 [degF] Dr. Trell Schwartz Work Phone: [phone] [place] [address] 12-29-2022 11:00-0500 Body weight [address] Trell Schwartz Work Phone: [facility] 12-29-2022 11:00-0500 Diastolic blood pressure 72 mm[Hg] Dr. Trell Schwartz Work Phone: [facility] 12-29-2022 11:00-0500 Heart rate 77 /min Dr. Trell Schwartz Work Phone: [facility] 12-29-2022 11:00-0500 Respiratory rate 18 /min Dr. Trell Schwartz Work Phone: [facility] 12-29-2022 11:00-0500 SaO2% (BldA) [Mass fraction] 99 % Dr. Trell Schwartz Work Phone: [facility] 12-29-2022 11:00-0500 Systolic blood pressure 138 mm[Hg] Dr. Trell Schwartz Work Phone: [facility] Encounters Encounter Date Encounter Type Care Provider Facility Start: 06-01-2025 ambulatory Trell Schwartz Facilit y:[facility] Start: 05-11-2025 End: 05-11-2025 ambulatory YOAN DO UROLOGIST PHYSICIAN-RETAIL STORE ASSISTANT Facility:[facility] Start: 05-11-2025 End: 05-11-2025 Patient encounter procedure YOAN DO UROLOGIST PHYSICIAN-RETAIL STORE ASSISTANT [facility] Start: 05-09-2025 End: 05-09-[address] Trell Schwartz MD Work Phone: -Cat Scan [facility] Start: 05-09-2025 End: 05-09-2025 Patient encounter procedure Spenser Meli DO -Cat Scan [facility] Work Phone: Start: 05-09-2025 End: 05-09-2025 ambulatory Trell Schwartz Facility:[facility] Start: 05-01-2025 End: 05-01-[address] Trell Schwartz MD Work Phone: [facility] Work Phone: Start: 05-01-2025 End: 05-01-2025 Patient encounter procedure Spenser Garrison DO -Laboratory Specimen Work Phone: Start: 05-01-2025 End: 05-01-2025 ambulatory Spenser Garrison Facility:[facility] Start: 04-28-2025 End: 04-28-[address] Trell Schwartz MD Work Phone: [facility] Work Phone: Start: 04-28-2025 End: 04-28-2025 Patient encounter procedure Spenser Garirson DO -[facility] Work Phone: Start: 02-14-2025 End: 02-14-2025 ambulatory TRELL SCHWARTZ MD Facility:[facility] [place] Start: 01-13-2025 Non-patient / Non-visit Dr. Jarred Corona MD -[facility] Start: 01-13-2025 Registered Referred Self Referred -[facility] Work Phone: Start: 01-13-2025 ambulatory Jarred Corona Facility:[facility] Start: 11-23-2024 End: 11-23-2024 ambulatory YOAN DO UROLOGIST PHYSICIAN-RETAIL STORE ASSISTANT Facility:[facility] Start: 11-15-2024 End: 11-15-2024 ambulatory TRELL SCHWARTZ MD [facility] Start: 11-15-2024 End: 11-15-2024 Patient encounter procedure YOAN DO UROLOGIST PHYSICIAN-RETAIL STORE ASSISTANT [facility] Start: 10-26-2024 End: 10-26-2024 ambulatory YOAN DO UROLOGIST PHYSICIAN-RETAIL STORE ASSISTANT Facility:[facility] Start: 10-12-2024 End: 10-12-2024 ambulatory Trell Schwartz Facility:[facility] Start: 09-23-2023 End: 09-23-2023 ambulatory [facility] Work Phone: Start: 09-23-2023 End: 09-23-2023 Patient encounter procedure [facility] Work Phone: Start: 03-27-2023 End: 03-27-[address] Trell Schwartz Work Phone: [facility] Work Phone: Start: 03-27-2023 End: 03-27-[address] Trell Schwartz Work Phone: [facility] Start: 03-03-2023 End: 03-03-[address] Trell Schwartz Work Phone: [facility] Start: 02-16-2023 End: 02-16-[address] Trell Schwartz Work Phone: [facility] Start: 12-29-2022 End: 12-29-[address] Trell Schwartz Work Phone: [facility] Start: 11-14-2022 End: 11-14-2022 ambulatory [facility] Work Phone: Start: 11-14-2022 End: 11-14-2022 [facility] Start: 09-23-2022 End: 09-23-2022 [facility] [place] [facility] Procedures Date Procedure Procedure Detail Performing Clinician Start: 05-09-2025 Computed tomography of abdomen and pelvis with contrast Dr. Trell Schwartz MD Work Phone: Start: 05-01-2025 End: 05-01-2025 Giardia lamb[address] antigen assay Dr[address] Trell Schwartz MD Work Phone: Start: 05-01-[address] Trell Schwartz MD Work Phone: Start: 05-01-2025 Measurement of occul t blood in stool specimen using immunoassay Dr. Trell Schwartz MD Work Phone: Start: 05-01-[address]va [address] parasites identification [address] Trell Schwartz MD Work Phone: Start: 05-01-2025 Ova&parasites direct smears concentration & id Dr. Trell Schwartz MD Work Phone: Start: 03-27-2023 Plain x-ray of hand Dr. Trell Schwartz Work Phone: Start: 11-14-2022 Plain chest X-ray Start: 10-16-2008 Cataract of right eye B ENKATARZYNA DO UROLOGIST PHYSICIAN-RETAIL STORE ASSISTANT Start: 09-16-2007 Cataract of left eye BE FLORINDA DO UROLOGIST PHYSICIAN-RETAIL STORE ASSISTANT Start: 11-16-2003 Herniated structure (morphologic abnormality) YOAN DO UROLOGIST PHYSICIAN-RETAIL STORE ASSISTANT Vasectomy YOAN DO APRN-RETAIL STORE ASSISTANT Plan of Treatment Date Care Activity Detail Author Start: 05-01-2025 Giardia Antigen (CRYSTAL) Giardia Antige n (CRYSTAL) [facility] Start: 05-01-2025 Ova and Parasites Ova and Parasites [facility] Start: 05-01-[address] [facility] [address] Abdomen and Pelvi s W contrast IV [facility] Elastase.pancreatic [Presence] in Stool [facility] Fat [Presence] in Stool [facility] Giardia lamblia anti gen assay [facility] Lactoferrin [Presenc e] in Stool by Immunoassay [facility] Measurement of occul t blood in stool specimen using immunoassay [facility] Ova OR parasites identification [facility] Protein measurement [facility] Payers Date Payer Category Payer Medicare [id number] 2024 Private Health Insurance [id number] 2024 Medicare [id number] 2024 Private Health Insurance [facility] [id number] 2024 Self-pay [id number] 2012 Unknown [id number] 1955 Unknown [id number] 2.16.8 [id number] 1957 Unknown [id number] 2.16.8 [id number] 1957 Unknown [id number] 2.16. [id number] 1957 Unknown [id number] 2.16.8 [id number] 1957 Unknown [id number] 2.16.8 [id number] Self-pay [id number] Unknown [id number] 2.16.8 [id number] Unknown [id number] 2.16.8 [id number] Unknown [id number] 2.16.8 [id number] Unknown [id number] 2.16.8 [id number] Unknown [id number] 2.16.8 [id number] Unknown [id number] 2.16.8 [id number] Unknown [id number] 2.16.8 [id number] Social History Date Type Detail Facility [facility] Work Phone: Start: 1955 Sex Assigned At Male [facility] Start: 10-26-2024 Tobacco smoking status Never s moked tobacco (finding) [facility] Sexual Orientation [facility]finding[facility] ever smoked [facility] Work Phone: Radiology Diagnostic study note 05-09-2025 Note Date & Type Note Facility 05-09-2025 Radiology Diagnostic study note [facility] Imaging Services [address] [place] [id number] Abdomen/Pelvis WITH Contrast MR#: [id number] Acct: [id number] Name: MATEODERICK EVANS Rep #: [id number] 12 : 1955 M 69 From: Katherine Dinero MD PCP: Dr. Trell Schwartz MD Status: RE G CLI Study:Abdomen/Pelvis WITH Contrast Date of Ex am: 05/09/25 Exam# [id number] Ordering Dr: Omayra Garrison DO PROCEDURE: ABDOMEN/PELVIS WITH CONTRAST 05/09/2025 REASON FOR EXAM: GI BLEED TECHNIQUE: ABDOMEN/PELVIS WITH oral and IV CONTRAST Coronal and Sagittal reconstruction series were provided. CONTRAST: Isovue 370 VOLUME: 80 mL One or more dose reduction techniques were used (e.g., Automated exposure control, adjustment of the mA and/or kV according to patient size, use of iterative reconstruction technique. RADIATION DOSE SUMMARY: CTDlvol: 18.3 mGy DLP: 1046 mGycm COMPARISON: None FINDINGS: Lung bases: Multivessel coronary calcifications. Triangular nodule in the rightlower lobe measuring 3 mm (series 2, image 6). Bibasilar atelectasis. Liver: Subcentimeter hypodensities are too small to characterize. Gallbladder: Unremarkable Spleen: Normal size. Pancreas: Normal size without evidence of mass surrounding inflammation or ductal dilation. Adrenals: Unremarkable Kidneys: No hydronephrosis or stone. Bilateral simple cysts. Additional subcentimeter hypodensities are too small to characterize. Bladder: Unremarkable Reproductive Organs: Mild prostatomegaly Bowel: No obstruction or inflammation. Presence of oral contrast limits evaluation for active gastrointestinal bleeding. Appendix: The appendix is not identified. There is no inflammatory process identified in the right lower quadrant to suggest appendicitis. Lymph nodes: No suspicious lymph node enlargement. Vasculature: Mild diffuse atherosclerotic calcifications are noted. Bones: Degenerative changes of the spine and sacroiliac joints. Soft tissues: There are round an ovoid hypodense lesions in the left rectus femoris muscle, which demonstrate peripheral hyperenhancement and measure slightly above simple fluid density and up to 4.0 cm in size. Postoperative changes from bilateral inguinal hernia repair. CT/Abdomen/Pelvis WITH Contrast IMPRESSION: 1. No definite evidence for an acute intra-abdominal abnormality. Presence of oral contrast precludes evaluation for active gastrointestinal bleeding. 2. Hypodense lesions with peripheral enhancement within the left rectus femorismuscle, partially imaged and measuring up to 4.0 cm in size. Findings could represent intramuscular abscess, hematoma, muscle injury, or neoplasm. Correlate with history and exam. 3. Pulmonary nodule measuring 3 mm in the right lower lobe. Consider CT chest in 12 months if patient is at high risk for malignancy per Fleischner society guidelines. Reading Location: [id number] CC: Dr. Trell Schwartz MD; Spenser Garrison, DO ~ [employer]: Signed [facility] Evaluation note 04-28-2025 Note Date & Type Note Facility 04-28-2025 Evaluation note Diagnosis Onset Date Resolution GI bleed acute April 28 8:19am [facility] Work Phone: Evaluation + Plan note Note Date & Type Note Facility Evaluation + Plan note Future Appointments Appointment Date:11/23/2024 03:20:00 PM Scheduled Provider:YOAN DO Location:UROLOGY Appointment Type:URO OV [facility] Evaluation note Note Date & Type Note Facility Evaluation note No assessment information availa [facility] Work Phone: Evaluation note Note Date & Type Note Facility Evaluation note Diagnosis Onset Date Acute bronchitis acute Acute frontal sinusitis, unspecified acute Acute bronchitis acute Acute frontal sinusitis, unspecified acute [facility] Work Phone: Evaluation note Note Date & Type Note Facility Evaluation note Diagnosis Onset Date Resolution GI bleed acute April 28 8:19am [facility] Work Phone: Hospital course Narrative Note Date & Type Note Facility Hospital course Narrative No data available for this section [facility] Hospital Discharge instructions Note Date & Type Note Facility Hospital Discharge instructions No data available for this section [facility] Progress note Note Date & Type Note Facility Progress note No data available for this section [facility] Reason for referral (narrative) Note Date & Type Note Facility Reason for referral (narrative) No reason for referral information available [facility] Work Phone: Chief Complaint and Reason for [...] 8:19am EORDER May 01, 2025 8:42 am Chief Complaint Admit Date SOFT DARK STOOL BLEEDING April 28, 2025 8:19am EORDER May 01, 2025 8:42 am GI BLEED May 09, 2025 6:09 am Summary Purpose Family History No Family [...] Care Provider, Referr ing Provider Active Frandy DAMON, PA Attending Provider Active Team Status: [...] 2024 Self Referred Referring Provider Active Start: ebruary 2024 Team Status: Active Member Role [...] May 01, 2025 End: May 01, 2025 Team Status: Active Member Role/Relationship Status Dates Dr. Trell Schwartz MD Primary Care Provider Active Team Status: Inactive Member Role/Relationship Status Dates Dr. Trell Schwartz MD Primary Care Provider Active Start: April 28, 2025 End: April 28, 2025 Dr. Trell Schwartz MD Referring Provider Active Start: April 28, 2025 End: April 28, 2025 Dr. Spenser Garrison DO Attending Provider Active Start: April 28, 2025 End: April 28, 2025 Team Status: Inactive Member Role/Relationship Status Dates Dr. Trell Schwartz MD Primary Care Provider Active Start: May 01, 2025 End: May 01, 2025 Dr. Spenser Friend , DO Attending Provider Active Start: May 01, 2025 End: May 01, 2025 Dr. Spenser Garrison DO Referring Provider Active Start: May 01, 2025 End: May 01, 2025 Team Status: Inactive Member Role/Relationship Status Dates Dr. Trell Schwartz MD Primary Care Provider Active Start: May 09, 2025 End: May 09, 2025 Dr. Spenser Garrison DO Attending Provider Active Start: May 09, 2025 End: May 09, 2025 Dr. Spenser Garrison DO Referring Provider Active Start: May 09, 2025 End: May 09, 2025 (unrecognized sect ion and content) No Status Records FoundNo Status Records FoundNo Status Records Found INFORMATION SOURCE (unrecogn ized section and content) DATE CREATED AUTHOR 12/18/2024 [facility] DATE CREATED AUTHOR AUTHOR'S ORGANIZ ATION 05/12/2025 [facility] DATE CREATED AUTHOR AUTHOR'S ORGANIZ ATION 05/15/2025 [facility] FOR RECORDS PERTAINING TO PATIENTS WHO ARE [...] BE BASED ON THE PRIMARY CLINICAL RECORDS. [employer] provides no warranty or guarantee of the accuracy or completeness of information in this document.
--- NOTE | 2025-05-25 07:26 | MRI_ITS ---
PROCEDURE: LOWER EXT NO JOINT W/WO CONT 05/25/2025 REASON FOR EXAM: MASS LEFT RECTUS REMORSE INCOMPLETELY IMAGED ON CT SCAN APRIL 2025 TECHNIQUE: LOWER EXT NO JOINT W/WO CONT CONTRAST: VOLUME: mL COMPARISON: none FINDINGS: A large ovoid shape intramuscular mass seen within the rectus femoris muscle measuring 15.7 x 5.3 x 5 cm in diameter. It displays non homogenous high T1, T2 & STIR signal with no obvious enhancement. Related intramuscular edema along its superior aspect with a small 1.5 cm intramuscular collection displaying similar MRI signal The rest of the scanned muscle groups and tendons of the left thigh are unremarkable. No intramuscular edema or fibers interruption. Normal MRI signal of the femur with no marrow infiltrative lesions, edema or obvious stress fractures. Intact hip joint. No abnormal marrow signals could be detected within the scanned osseous structures. Normal appearance of the neurovascular bundle. Prepatellar subcutaneous edema. MRI/Lower Ext No Joint W/WO Cont IMPRESSION: Left rectus femoris large intramuscular mass showing related intramuscular agnes a along its superior aspect with a small 1.5 cm intramuscular collection displaying similar MRI signal as detailed. Findings ar e suggestive of intramuscular organized hematomas, rather than neoplastic nature. Advise clinical and sonography correlation Reading [facility]
--- NOTE | 2025-05-25 07:30 | RAD_ITS ---
PROCEDURE: ORBITS FOR FOREIGN BODY 05/25/2025 REASON FOR EXAM: PRE -MRI; HX METAL TECHNIQUE: ORBITS FOR FOREIGN BODY COMPARISON: None FINDINGS: No radiopaque foreign body is seen. RAD/Orbits for Foreign Body IMPRESSION: No radiopaque foreign body is seen. Reading Location: [facility]
== END | disposition home or self-care (01) ==
LOC: OPMRI 07:11
PROVIDERS: PCP Family Medicine; Referring Provider Family Medicine; Visit Provider Family Medicine
DX: M62.89 Other specified disorders of muscle (principal)
CPT/HCPCS: 70030; 73720; A9575

== ENCOUNTER → 2025-06-01 | Outpatient (CLI) | payer MEDICARE, OTHER, SELFPAY ==
--- NOTE | 2025-06-01 16:44 | CT_ITS ---
EXAM: CT Chest Without Intravenous Contrast CLINICAL INDICATION: PULMONARY NODUL TECHNIQUE: Axial computed tomography images of the chest without intravenous contrast. This CT exam was performed using one or more of the following dose reduction techniques: automated exposure control, adjustment of the mA and/or kV according to patient size, and/or use of iterative reconstruction technique. COMPARISON: No relevant prior studies available. FINDINGS: ARTIFACTS: Motion artifact. LUNGS AND PLEURAL SPACES: 2 mm subpleural nodule of the lateral right lower lobe. Repeat CT in 12 months is recommended. Mild lung emphysema. No consolidation. No significant effusion. No pneumothorax. HEART: Unremarkable. No cardiomegaly. No significant pericardial effusion. No significant coronary artery calcifications. MEDIASTINUM: A few prominent mediastinal lymph nodes measuring up to 6 mm. BONES/JOINTS: Unremarkable. No acute fracture. SOFT TISSUES: Unremarkable. VASCULATURE: Unremarkable. No thoracic aortic aneurysm. LYMPH NODES: See above. CT/Chest without Contrast IMPRESSION: 2 mm subpleural nodule of the lateral right lower lobe. Repeat CT in 12 months is recommended. Reading [facility]
--- NOTE | 2025-06-01 16:45 | US_ITS ---
PROCEDURE: EXT NON VASC LIMITED/SOFT TISS 06/01/2025 REASON FOR EXAM: MUSCLE MASS OF LEG TECHNIQUE: EXT NON VASC LIMITED/SOFT TISS COMPARISON: None FINDINGS: The upper left thigh was examined with ultrasound. The palpable lump corresponds to a 14 cm x 5.1 cm by 4.4 cm hypoechoic heterogeneous mass with cystic areas within it. Biopsy recommended. US/Ext Non Vasc Limited/Soft Tiss IMPRESSION: 14 cm x 5.1 cm 4.4 cm hypoechoic heterogeneous mass with cystic areas within it . Biopsy is recommended. Reading Location: [place] [address]
== END | disposition home or self-care (01) ==
LOC: CT 16:41
PROVIDERS: PCP Family Medicine; Referring Provider Family Medicine; Visit Provider Family Medicine
DX: M62.89 Other specified disorders of muscle (principal)
CPT/HCPCS: 71250; 76882

== ENCOUNTER 2025-07-21 09:34 | Outpatient (CLI) | payer MEDICARE, OTHER, SELFPAY ==
--- NOTE | 2025-07-21 09:36 | US_ITS ---
PROCEDURE: US NEEDLE BIOPSY/SOFT TISSUE 07/21/2025 REASON FOR EXAM: LEFT RECTUS FEMORIS MUSCLE HYPERDENSITY. BIOPSY RECCOMENDED TECHNIQUE: Procedure Code: [id number] Modality: US Procedure: US NEEDLE BIOPSY/SOFT TISSUE The procedure as well as the benefits and possible complications including infection and bleeding were explained to the patient. Informed consent was obtained. There is a 15.8 cm 5.1 cm 4.4 cm heterogeneous mass in the left upper thigh anteriorly. The overlying skin was prepped and draped in the usual sterile fashion. Following local anesthetic application, an 18 gauge core biopsy needle was utilized for core biopsies. 4 core biopsies were obtained. The pathologist deemed the specimen adequate for diagnosis. COMPARISON: Prior study dated June 01, 2025. FINDINGS: Successful ultrasound-guided core biopsy of the mass in the anterior left thigh. Patient tolerated the procedure well. US/US Needle Biopsy/Soft Tissue IMPRESSION: Successful ultrasound-guided core biopsy of the mass in the anterior left thigh . The patient tolerated the procedure well. No immediate complication noted. Reading Location: [place] [id number]
--- NOTE | 2025-07-21 10:33 | ASPIGT_PTH ---
PATIENT: DERICK GALINDO LOC: [facility]#:[id number] AGE/SX: 69/M ROOM: RE07/21/[address]: Dr. Herber Roman MD : [id number] BED: DIS: 07/21/2025 SPEC #: [id number] RECD: 07/21/25 10:45 STATUS: TATI RAMIREZ #: [id number] PETRA: 07/21/25 10:[address]: Herber Roman DEPT: SURGICAL PATHOLOGY RECD BY: Andi Yeager Tissues: A - Femoral region, NOS Procedures: FNA Specimen Adequacy Surgery Specimen Level V Imprint (control) HEADER OPERATION: Ultrasound guided left rectus femoris biopsy PRE-OP DIAGNOSIS: Left rectus femoris muscle hyperdensity, mass TISSUE SUBMITTED: A- Femoris biopsy MICROSCOPIC DIAGNOSIS A. Muscle, rectus femoris, left, ultrasound guided core biopsy: - Fragments of fibrous tissue with reactive/degenerative changes and hemosiderin deposition. - Fragments of benign skeletal muscle. - Fragments of blood clot. COMMENT The specimen is evaluated at the time of biopsy by Dr. Martinez. Immediate Evaluation = 1. Blood and hemosiderin-laden macrophages. 2. Blood and hemosiderin-laden macrophages. MICROSCOPIC DESCRIPTION Slides are reviewed. GROSS DESCRIPTION A. Received in formalin labeled with the patient's name and date of . Designated as left thigh are multiple hunt-white to red tissue core fragments, 0.1-0.5 cm in length by 0.1 cm in diameter. Touch preparations were made for MALDONADO procedure. Entirely submitted in 2 cassettes. RI 07/21/2025 CPT:06135,88074
== END 2025-07-21 23:59 | disposition home or self-care (01) ==
LOC: US 09:35
PROVIDERS: PCP Family Medicine; Referring Provider Family Medicine; Visit Provider Family Medicine
DX: R22.42 Localized swelling, mass and lump, left lower limb (principal); M62.89 Other specified disorders of muscle
CPT/HCPCS: 20206; 76942; 88172; 88307